=== PATIENT | female | born 1975 | race Caucasian/White ===

== ENCOUNTER 2019-09-17 06:51 | Day surgery (SDC) | payer BC, OTHER ==
[~2019-09-17 06:51] MED LIST: Lactated Ringers 1,000 ML IV SCH; Sodium Chloride 0.9% 10 ML SDV IV PRN; Sodium Chloride 0.9% 10 ML Syringe FLUSH PRN; Sodium Chloride 0.9% 2.5 ML Syringe FLUSH PRN; ceFAZolin 2 GM in Premix Bag 1 BAG IV ONE
[2019-09-17] MEDS ORDERED: Lidocaine 2% 5 ML SDV ONE (07:36)
[2019-09-17] MEDS ORDERED: Bupivacaine 0.25% 10 ML SDV ONE (07:36)
[2019-09-17] MEDS ORDERED: Methylene Blue 50 MG/10 ML Ampule ONE (07:36)
[2019-09-17] MEDS ORDERED: fentaNYL 100 MCG/2 ML SDV ONE (07:37)
[2019-09-17] MEDS ORDERED: Midazolam 1 MG/ML 2 ML SDV ONE (07:37)
[2019-09-17] MEDS ORDERED: Rocuronium 100 MG/10 ML Syringe ONE (07:37)
[2019-09-17] MEDS ORDERED: Iopamidol 200-M 10 ML vial ITHECAL ONE (07:37)
[2019-09-17] MEDS ORDERED: Propofol 200 MG/20 ML SDV ONE (07:37)
--- NOTE | 2019-09-17 07:38 | PCM.PREANE ---
Preanesthetic Assessment - Anesthesia/Transfusion/Family Hx Anesthesia History: Prior Anesthesia Reaction Other Type of Anesthesia Reaction Comment: tachycardia after D&C Family History of Anesthesia Reaction: No Transfusion History: No Prior Transfusion(s) - Review of Systems General: No Symptoms Pulmonary: No Symptoms Cardiovascular: No Symptoms Gastrointestinal: No Symptoms Neurological: No Symptoms Other: Reports: None - Physical Assessment NPO Status Date: 09/16/19 Vital Signs: Last Vital Signs Temp 98.8 F 09/17/19 07:05 Pulse 90 09/17/19 07:05 Resp 16 09/17/19 07:05 BP 140/80 09/17/19 07:05 Pulse Ox 97 09/17/19 07:05 Height: 5 ft 3.5 in Weight: 75.296 kg ASA Class: 2 Mental Status: Alert & Oriented x3 Airway Class: Mallampati = 2 Dentition: Reports: Normal Dentition ROM/Head Extension: Full Lungs: Clear to Auscultation, Normal Respiratory Effort Cardiovascular: Regular Rate, Regular Rhythm - Lab Values: Laboratory Last Values WBC 10.81 K/uL (4.0-11.0) 09/17/19 07:17 RBC 4.39 M/uL (4.30-5.90) 09/17/19 07:17 Hgb 11.6 g/dL (12.0-16.0) L 09/17/19 07:17 Hct 36.8 % (36.0-46.0) 09/17/19 07:17 MCV 83.8 fL (80.0-98.0) 09/17/19 07:17 MCH 26.4 pg (27.0-32.0) L 09/17/19 07:17 MCHC 31.5 g/dL (31.0-37.0) 09/17/19 07:17 RDW Std Deviation 41.4 fl (28.0-62.0) 09/17/19 07:17 RDW Coeff of George 14 % (11.0-15.0) 09/17/19 07:17 Plt Count 329 K/uL (150-400) 09/17/19 07:17 MPV 11.40 fL (7.40-12.00) 09/17/19 07:17 Nucleated RBC % 0.0 /100WBC 09/17/19 07:17 Nucleated RBCs # 0 K/uL 09/17/19 07:17 - Allergies Allergies/Adverse Reactions: Allergies Allergy/AdvReac Type Severity Reaction Status Date / Time ciprofloxacin [From Cipro] Allergy Tremors Verified 09/16/19 13:28 Sulfa (Sulfonamide Allergy Rash Verified 09/16/19 13:28 Antibiotics) - Blood Blood Available: No - Anesthesia Plan Pre-Op Medication Ordered: None - Acknowledgements Anesthesia Type Planned: General Anesthesia Pt an Appropriate Candidate for the Planned Anesthesia: Yes Alternatives and Risks of Anesthesia Discussed w Pt/Guardian: Yes Pt/Guardian Understands and Agrees with Anesthesia Plan: Yes Additional Comments: PMH: PCOS, HTN-recently started on Rx PLN: GET PreAnesthesia Questionnaire HEENT History: Reports: Other (See Below) Other HEENT History: wears glasses, has permanent lower dental retainer Cardiovascular History: Reports: Hypertension, Other (See Below) Other Cardiovascular History: hx of palpitations Genitourinary History: Reports: Other (See Below) Other Genitourinary History: has left renal mass 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: 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, Polycystic Ovaries, , Spontaneous Neurological History: Reports: Migraines, Other (See Below) Other Neuro History: monthly migraines- takes Ibuprofen, hx of motion sickness Psychiatric History: Reports: Anxiety Other Psychiatric History: does not take any medication - Past Surgical History Head Surgeries/Procedures: Reports: None Female Surgical History: Reports: D&C, Endometrial Ablation, LEEP, Tubal Ligation Other Female Surgeries/Procedures: D&C x3 Musculoskeletal Surgical History: Reports: Arthroscopic Knee - SUBSTANCE USE Smoking Status *Q: Never Smoker Recreational Drug Use History: No - HOME MEDS Home Medications: Home Meds Ferrous Sulfate 325 mg PO DAILY 09/16/19 [History] Metoprolol Succinate 50 mg PO BEDTIME 09/16/19 [History] Potassium Chloride 10 meq PO QAM 09/16/19 [History] - CURRENT (IN HOUSE) MEDS Current Meds: Current Medications Lactated Ringer's (Ringers, Lactated) 1,000 mls @ 100 mls/hr IV ASDIRECTED ELIZABETH Sodium Chloride (Saline Flush) 10 ml FLUSH ASDIRECTED PRN PRN Reason: Keep Vein Open Sodium Chloride (Saline Flush) 2.5 ml FLUSH ASDIRECTED PRN PRN Reason: Keep Vein Open Sodium Chloride (Normal Saline) 10 ml IV ASDIRECTED PRN PRN Reason: IV Use Discontinued Medications Cefazolin Sodium/Dextrose 2 gm (/ Premix) 50 mls @ 100 mls/hr IV ONETIME ONE Stop: 09/17/19 01:25
[2019-09-17] MEDS ORDERED: Fluorescein 5 ML Vial ONE (07:39)
[2019-09-17] MEDS ORDERED: ceFAZolin/Dextrose,Iso-Osmotic 2 GM/50 ML Duplex Bag IV ONE (07:41)
[2019-09-17] MEDS ORDERED: HYDROmorphone 2 MG/ML Syringe ONE (08:32)
[2019-09-17] MEDS ORDERED: Dexamethasone 4 MG/ML 5 ML MDV ONE (08:40)
[2019-09-17] MEDS ORDERED: Ondansetron 4 MG/2 ML SDV ONE ×2 (08:40→09:46)
[2019-09-17] MEDS ORDERED: Scopolamine 1.5 MG Transdermal Patch ONE (08:40)
[2019-09-17] MEDS ORDERED: ePHEDrine 50 MG/ML SDV ONE (08:50)
[2019-09-17] MEDS ORDERED: Promethazine 25 MG/ML SDV IM PRN (09:32)
[2019-09-17] MEDS ORDERED: fentaNYL 100 MCG/2 ML SDV IVPUSH PRN (09:32)
[2019-09-17] MEDS ORDERED: Glycopyrrolate 0.2 MG/ML SDV ONE (09:38)
[2019-09-17] MEDS ORDERED: Acetaminophen 1,000 MG in Premix Bag 1 BAG IV PRN (09:40)
--- NOTE | 2019-09-17 10:39 | PCM.POSTAN ---
POST ANESTHESIA ASSESSMENT - MENTAL STATUS Mental Status: Alert, Oriented - VITAL SIGNS Vital Signs: Last Vital Signs Temp 37.1 C 09/17/19 07:05 Pulse 91 09/17/19 10:30 Resp 10 L 09/17/19 10:30 BP 134/61 09/17/19 10:30 Pulse Ox 92 L 09/17/19 10:30 - RESPIRATORY Respiratory Status: Respiratory Rate WNL, Airway Patent, O2 Saturation Stable - CARDIOVASCULAR CV Status: Pulse Rate WNL, Blood Pressure Stable - GASTROINTESTINAL GI Status: No Symptoms - POST OP HYDRATION Hydration Status: Adequate & Stable
[2019-09-17] MEDS ORDERED: Acetaminophen/HYDROcodone 325-5 MG Tab PO PRN (11:07)
[2019-09-17] MEDS ORDERED: Haloperidol Lactate 5 MG/ML SDV IM ONE (11:09)
--- NOTE | 2019-09-17 12:52 | PCM48HPAN ---
Post Anesthesia Note - EVALUATION WITHIN 48HRS OF ANESTHETIC Vital Signs in Normal Range: Yes Patient Participated in Evaluation: Yes Respiratory Function Stable: Yes Airway Patent: Yes Cardiovascular Function Stable: Yes Hydration Status Stable: Yes Pain Control Satisfactory: Yes Nausea and Vomiting Control Satisfactory: Yes Mental Status Recovered: Yes Vital Signs: Last Vital Signs Temp 35.9 C L 09/17/19 10:38 Pulse 72 09/17/19 11:45 Resp 16 09/17/19 11:45 BP 146/61 H 09/17/19 11:45 Pulse Ox 95 09/17/19 11:45 - COMMENTS/OBSERVATIONS Free Text/Narrative:: Pt had post op nausea which has resolved with Haldol regimen. Denies pain or other problems associated with anesthesia.
--- NOTE | 2019-09-17 13:58 | OR ---
SURGEON: Gibran Pitt M.D. DATE OF PROCEDURE: 09/17/2019 PREOPERATIVE DIAGNOSIS: Left ureteral obstruction. POSTOPERATIVE DIAGNOSIS: Left ureteral obstruction. OPERATION: Cystoscopy, double-J stent placement on both sides in preparation for hysterectomy. DESCRIPTION OF PROCEDURE: The patient was given general anesthesia. She was in the dorsal lithotomy position, prepped and draped in sterile drapes. Cystoscope was placed in the bladder. The inside of bladder was normal. A guidewire was advanced in the left ureter. A 6-Tajik 26 cm was placed over the guidewire. However, there was unusual resistance and no hydronephrotic drip that was expected. So that stent was taken out and a Glidewire was advanced in the left ureter which went in without difficulty. After a left retrograde study was done, showed the point of obstruction close to the bladder and higher up by the uterus. There was no evidence of extravasation to suggest perforation. Over this Glidewire, which was now under fluoroscopy, a 6-Tajik 26 cm double-J stent was placed. The position was confirmed on fluoroscopy. The guidewire was then advanced in the right ureter, which had no obstruction, over which a 6-Tajik 26 centimeter double-J stent was placed. The position of that stent was also confirmed on fluoroscopy. The bladder was emptied, and the patient was turned over to the pack puller. The patient tolerated that part of the procedure well. It was easy to see a hydronephrotic drip from the left side. BARBARA / BERNIE /[id number]
--- NOTE | 2019-09-17 17:29 | OR ---
SURGEON: Tc García MD DATE OF PROCEDURE: 09/17/2019 INDICATIONS: A 44-year-old female with history of uterine polyps and fibroids presenting for scheduled hysterectomy. The patient initially presented with bleeding, after history of endometrial ablation. She had endocervical polyps that were removed and pathology showed benign polyp with simple glandular hyperplasia. On further workup she was noted to have elevated creatinine of 1.1. She had a workup including renal ultrasound, CT Abdomen and Pelvis and MRI which showed a cystic mass and hydronephrosis of the left kidney. She was evaluated by urology Dr. Pitt and mass appears benign with obstruction likely from uterine fibroids. The patient was scheduled for hysterectomy, but presented to the office after noticing a mass protruding from her vagina. On exam, that appeared to be a small pedunculated fibroid. Due to risk of bleeding, she was scheduled next day for a LAVH, bilateral salpingectomy, frozen section, and bilateral ureteral stent placement. PREOPERATIVE DIAGNOSES: 1. Uterine fibroids. 2. Simple hyperplasia. 3. Prolapsed fibroid. POSTOPERATIVE DIAGNOSES: 1. Uterine fibroids. 2. Suspected endometrial cancer PROCEDURES PERFORMED: Exam under anesthesia, removal of polypoid uterine mass, dilation and curettage. Cystoscopy and bilateral ureteral stent placement by Dr. Pitt. ANESTHESIOLOGIST: Dr. Jorge Luis Simms. ANESTHESIA: General anesthesia. EBL: 50cc FINDINGS: Edematous, friable, polypoid mass protruding from the cervix, measuring 5 cm x 5 cm, appearance concerning for malignancy. SPECIMEN: Uterine mass removed and sent to frozen pathology, differential include benign polyp versus uterine sarcoma or adenosarcoma. Could not make definitive diagnosis, will be sent to [facility] for additional evaluation. DESCRIPTION OF PROCEDURE: The patient was brought to the OR. General anesthesia was applied without difficulty. She was positioned in dorsal lithotomy position. Her legs supported using stirrups. Careful to avoid all pressure points. She was given 2 g Ancef preop for prophylaxis. The vagina was prepped with Betadine and abdomen prepped with chlorhexidine in sterile fashion. She was draped. Exam under anesthesia showed the uterus was irregular, 10-week size with firm fundal fibroid, mass protruding from the cervix, and fullness in the posterior cul-de-sac. A speculum was placed in the posterior vagina and a 5 cm x 5 cm poorly-formed, polypoid mass was noted to be protruding from the cervix which was very different in appearance from the exam in the office. The tissue was very edematous and friable, appearance very concerning for a malignancy. It was grasped with ring forceps and removed from the cervical os and lower uterus. The specimen was sent for frozen pathology. Attention was then turned to placement of ureteral stents. Dr. Pitt performed cystoscopy and placement of stents, please see separate dictation. The frozen section was nondiagnostic with the differentials including benign polyp, uterine sarcoma, or adenosarcoma. The speculum was again placed in the vagina to visualize the cervix. Decision was made at this point to perform D and C and defer hysterectomy until confirmation with pathology. Sharp curettage was carefully performed to remove any remaining tissue from the uterus and sent to pathology. The mass seemed to be mainly endocervical and in the lower uterus. The fundus of the uterus was stenotic due to prior ablation. Hemostasis was confirmed. The procedure was then terminated. She tolerated the procedure well and was given postop care instructions. Discussed with her operative findings, plan to refer to [facility] EDUCATOR Oncology for further evaluation. TONY / BERNIE /[id number]
--- NOTE | 2019-09-20 14:47 | CR ---
Abdomen: 8 fluoroscopic spot views were obtained utilizing C-arm device during placement of left retrograde pyelogram and stent placement Contrast within the left ureter shows no discrete filling defects. There is mildly dilated collecting system seen on the left side. Stent partially visualized on the right side. Fluoroscopy time given as 15.3 seconds. Impression: 1. Procedural study as described above. Diagnostic code #2 This report was dictated in MDT
== END 2019-09-17 13:30 | disposition home or self-care (01) ==
LOC: MW.SDS 06:51 → EDSTATUS 08:00 → MW.SDS 13:30
PROVIDERS: ATTEND Obstetrics & Gynecology
DX: N13.5 Crossing vessel and stricture of ureter without hydronephrosis (principal); N84.1 Polyp of cervix uteri; I11.9 Hypertensive heart disease without heart failure; R00.2 Palpitations; Z88.2 Allergy status to sulfonamides; Z88.1 Allergy status to other antibiotic agents
CPT/HCPCS: 36415; 52332; 58120; 76000; 80048; 85027; 86850; 86900; 86901; 88305; 88331; A9270; C1769; C2617; J0690; J1100; J1170; J2001; J2250; J2405; J2704; J3010; J3490; J7120; Q9966; 00940

== ENCOUNTER 2019-11-12 06:31 | Day surgery (SDC) | payer BC, OTHER ==
[2019-11-12] MEDS ORDERED: Glycopyrrolate 0.2 MG/ML SDV ONE (07:01)
[2019-11-12] MEDS ORDERED: Lidocaine 2% 5 ML SDV ONE (07:01)
[2019-11-12] MEDS ORDERED: Ondansetron 4 MG/2 ML SDV ONE (07:01)
[2019-11-12] MEDS ORDERED: Ketorolac 30 MG/ML SDV ONE (07:01)
[2019-11-12] MEDS ORDERED: Heparin Sodium 100 Units/ML 3 ML Syringe ONE ×2 (07:21→08:15)
[2019-11-12] MEDS ORDERED: Bupivacaine 0.5% 10 ML SDV ONE (07:21)
[2019-11-12] MEDS ORDERED: Octyl 2-Cyanoacrylate 1 Tube ONE (07:21)
[2019-11-12] MEDS ORDERED: Lidocaine 1% 20 ML MDV ONE (07:22)
[2019-11-12] MEDS ORDERED: Iopamidol 200-M 10 ML vial ITHECAL ONE (07:22)
[2019-11-12] MEDS ORDERED: Propofol 200 MG/20 ML SDV ONE (07:33)
[2019-11-12] MEDS ORDERED: fentaNYL 100 MCG/2 ML SDV ONE (07:33)
[2019-11-12] MEDS ORDERED: Midazolam 1 MG/ML 2 ML SDV ONE (07:33)
[2019-11-12] MEDS ORDERED: Sodium Chloride 0.9% 20 ML ONE (07:36)
[2019-11-12] MEDS ORDERED: ceFAZolin 1 GM Vial ONE (07:36)
--- NOTE | 2019-11-12 08:50 | PCM.OPNOTE ---
- General Post-Op/Procedure Note Date of Surgery/Procedure: 11/12/19 Operative Procedure(s): Right internal jugular port a cath placement Findings: RIJ port a cath Pre Op Diagnosis: Uterine cancer Post-Op Diagnosis: same Anesthesia Technique: MAC Primary Surgeon: Keisha Mario Fluid Replacement, Intraop: 700 EBL in mLs: 5 Condition: Good
--- NOTE | 2019-11-12 09:12 | PCM.POSTAN ---
POST ANESTHESIA ASSESSMENT - MENTAL STATUS Mental Status: Alert, Oriented - VITAL SIGNS Vital Signs: Last Vital Signs Temp 36.4 C 11/12/19 08:45 Pulse 82 11/12/19 09:05 Resp 14 11/12/19 09:05 BP 130/64 11/12/19 09:05 Pulse Ox 95 11/12/19 09:05 - RESPIRATORY Respiratory Status: Respiratory Rate WNL, Airway Patent, O2 Saturation Stable - CARDIOVASCULAR CV Status: Pulse Rate WNL, Blood Pressure Stable - GASTROINTESTINAL GI Status: No Symptoms - PAIN Pain Score: 0 - POST OP HYDRATION Hydration Status: Adequate & Stable - OBSERVATIONS Free Text/Narrative:: No anesthesia problems
--- NOTE | 2019-11-12 09:17 | PCM.PREANE ---
Preanesthetic Assessment - Anesthesia/Transfusion/Family Hx Anesthesia History: Prior Anesthesia Reaction Other Type of Anesthesia Reaction Comment: tachycardia after D&C Family History of Anesthesia Reaction: No Transfusion History: No Prior Transfusion(s) Intubation History: Unknown - Review of Systems General: No Symptoms Pulmonary: No Symptoms Cardiovascular: No Symptoms Gastrointestinal: No Symptoms Neurological: No Symptoms Other: Reports: None - Physical Assessment Vital Signs: Last Vital Signs Temp 36.4 C 11/12/19 08:45 Pulse 82 11/12/19 09:05 Resp 14 11/12/19 09:05 BP 130/64 11/12/19 09:05 Pulse Ox 95 11/12/19 09:05 Height: 5 ft 3 in Weight: 73.028 kg ASA Class: 2 Mental Status: Alert & Oriented x3 Airway Class: Mallampati = 1 Dentition: Reports: Normal Dentition Thyro-Mental Finger Breadths: 3 Mouth Opening Finger Breadths: 3 ROM/Head Extension: Full Lungs: Clear to Auscultation, Normal Respiratory Effort Cardiovascular: Regular Rate, Regular Rhythm - Allergies Allergies/Adverse Reactions: Allergies Allergy/AdvReac Type Severity Reaction Status Date / Time ciprofloxacin [From Cipro] Allergy Tremors Verified 11/12/19 07:06 Sulfa (Sulfonamide Allergy Rash Verified 11/12/19 07:06 Antibiotics) - Blood Blood Available: No - Anesthesia Plan Pre-Op Medication Ordered: None - Acknowledgements Anesthesia Type Planned: General Anesthesia Pt an Appropriate Candidate for the Planned Anesthesia: Yes Alternatives and Risks of Anesthesia Discussed w Pt/Guardian: Yes Pt/Guardian Understands and Agrees with Anesthesia Plan: Yes PreAnesthesia Questionnaire HEENT History: Reports: Other (See Below) Other HEENT History: wears glasses, has permanent lower dental retainer Cardiovascular History: Reports: Hypertension, Other (See Below) Other Cardiovascular History: hx of palpitations, twice a month, mostly all day on and off- stopped by themself Genitourinary History: Reports: Other (See Below) Other Genitourinary History: has left renal mass (cyst) 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: Fibroids, Polycystic Ovaries, , Spontaneous Neurological History: Reports: Migraines, Other (See Below) Other Neuro History: monthly migraines- takes Ibuprofen, hx of motion sickness Psychiatric History: Reports: Anxiety Other Psychiatric History: does not take any medication Oncologic (Cancer) History: Reports: Uterine - Past Surgical History Head Surgeries/Procedures: Reports: None Female Surgical History: Reports: D&C, Endometrial Ablation, Hysterectomy, LEEP, Salpingo-Oophorectomy, Tubal Ligation Other Female Surgeries/Procedures: D&C x3 Musculoskeletal Surgical History: Reports: Arthroscopic Knee - HOME MEDS Home Medications: Home Meds Metoprolol Succinate 50 mg PO BEDTIME 09/16/19 [History] - CURRENT (IN HOUSE) MEDS Current Meds: Current Medications Lactated Ringer's (Ringers, Lactated) 1,000 mls @ 125 mls/hr IV ASDIRECTED ELIZABETH Last Admin: 11/12/19 07:05 Dose: 125 mls/hr Documented by: Sodium Chloride (Saline Flush) 2.5 ml FLUSH ASDIRECTED PRN PRN Reason: Keep Vein Open Sodium Chloride (Normal Saline) 10 ml IV ASDIRECTED PRN PRN Reason: IV Use Sodium Chloride (Saline Flush) 10 ml FLUSH ASDIRECTED PRN PRN Reason: Keep Vein Open Discontinued Medications Bupivacaine HCl (Sensorcaine-Mpf 0.5%) Confirm Administered Dose 10 ml .ROUTE .STK-MED ONE Stop: 11/12/19 07:22 Cefazolin Sodium (Ancef) Confirm Administered Dose 2 gm .ROUTE .STK-MED ONE Stop: 11/12/19 07:37 Fentanyl (Sublimaze) Confirm Administered Dose 100 mcg .ROUTE .STK-MED ONE Stop: 11/12/19 07:34 Glycopyrrolate (Robinul) Confirm Administered Dose 0.2 mg .ROUTE .STK-MED ONE Stop: 11/12/19 07:02 Heparin Sodium (Porcine) (Heparin Lock Flush 100 Units/Ml) Confirm Administered Dose 600 unit .ROUTE .STK-MED ONE Stop: 11/12/19 07:22 Heparin Sodium (Porcine) (Heparin Lock Flush 100 Units/Ml) Confirm Administered Dose 600 unit .ROUTE .STK-MED ONE Stop: 11/12/19 08:16 Cefazolin Sodium/Dextrose 2 gm (/ Premix) 50 mls @ 100 mls/hr IV ONETIME ONE Stop: 11/08/19 11:54 Sodium Chloride (Normal Saline) Confirm Administered Dose 20 mls @ as directed .ROUTE .STK-MED ONE Stop: 06/26/20 07:37 Iopamidol (Isovue-M 200) Confirm Administered Dose 10 ml ITHECAL .STK-MED ONE Stop: 11/12/19 07:23 Ketorolac Tromethamine (Toradol) Confirm Administered Dose 30 mg .ROUTE .STK-MED ONE Stop: 11/12/19 07:02 Lidocaine (Xylocaine-Mpf 2%) Confirm Administered Dose 5 ml .ROUTE .STK-MED ONE Stop: 11/12/19 07:02 Lidocaine HCl (Xylocaine 1%) Confirm Administered Dose 20 ml .ROUTE .STK-MED ONE Stop: 11/12/19 07:23 Midazolam HCl (Versed 1 Mg/Ml) Confirm Administered Dose 2 mg .ROUTE .STK-MED ONE Stop: 11/12/19 07:34 Octyl Cyanoacrylate (Dermabond Advance) Confirm Administered Dose 1 applic .ROUTE .STK-MED ONE Stop: 11/12/19 07:22 Ondansetron HCl (Zofran) Confirm Administered Dose 4 mg .ROUTE .STK-MED ONE Stop: 11/12/19 07:02 Propofol (Diprivan 20 Ml) Confirm Administered Dose 200 mg .ROUTE .ST-MED ONE Stop: 11/12/19 07:34
--- NOTE | 2019-11-12 09:23 | CR ---
Chest: Portable view of the chest was obtained. Comparison: Prior chest x-ray of 09/01/19. Heart size and mediastinum are normal. Lungs are clear with no acute parenchymal change. Right sided infusion port is seen. Tip lies within the superior vena cava. No pneumothorax is seen. No acute osseous finding is seen. Impression: 1. Right-sided infusion port. 2. Portable chest x-ray is otherwise unremarkable. Diagnostic code #2 This report was dictated in MDT
--- NOTE | 2019-11-12 09:51 | PCM48HPAN ---
Post Anesthesia Note - EVALUATION WITHIN 48HRS OF ANESTHETIC Vital Signs in Normal Range: Yes Patient Participated in Evaluation: Yes Respiratory Function Stable: Yes Airway Patent: Yes Cardiovascular Function Stable: Yes Hydration Status Stable: Yes Pain Control Satisfactory: Yes Nausea and Vomiting Control Satisfactory: Yes Mental Status Recovered: Yes Vital Signs: Last Vital Signs Temp 36.4 C 11/12/19 08:45 Pulse 82 11/12/19 09:05 Resp 14 11/12/19 09:05 BP 130/64 11/12/19 09:05 Pulse Ox 95 11/12/19 09:05 - COMMENTS/OBSERVATIONS Free Text/Narrative:: No anesthesia problems
--- NOTE | 2019-11-12 10:49 | CR ---
Chest: 4 fluoroscopic spot views were obtained during placement of a right-sided Port-A-Cath. Study shows final position within the superior vena cava of the Port-A-Cath catheter. Fluoroscopy time given as 32.0 seconds. Impression: 1. Procedural study as noted above. Diagnostic code #2 This report was dictated in MDT
--- NOTE | 2019-11-14 20:48 | OR ---
SURGEON: KEISHA MARIO MD DATE OF PROCEDURE: 11/12/2019 PREOPERATIVE DIAGNOSIS: Uterine cancer. POSTOPERATIVE DIAGNOSIS: Uterine cancer. PROCEDURE PERFORMED: Right internal jugular Port-A-Cath placement. PRIMARY SURGEON: Keisha Mario M.D. ANESTHESIA: General LMA. FLUIDS: 700 mL crystalloid. ESTIMATED BLOOD LOSS: 5 mL. FINDINGS: Right internal jugular Port-A-Cath placement. COMPLICATIONS: None. INDICATIONS: The patient is a 44-year-old female who was recently diagnosed with uterine cancer. She is in need of a Port-A-Cath placement for chemotherapy treatment. I explained the procedure, expected perioperative course, and risks. The patient verbalized understanding and wishes to proceed. PROCEDURE IN DETAIL: The patient was brought into the OR and placed on the OR table in supine position. A time-out was completed verifying the patient's name, age, date of , allergies, and procedure to be performed. Both arms were tucked to the patient's side and a shoulder roll placed under the patient's shoulders. General LMA anesthesia was induced. An ultrasound was brought in and I verified the vascular anatomy of the right side of the neck. A photograph of this was taken and placed in the patient's chart. The neck and chest were then prepped and draped in usual standard fashion. The patient was placed into reverse Trendelenburg position. Using a sterile ultrasound, I re-identified the vascular anatomy of the right side of the neck. Using a 1:1 mixture of 0.5% Marcaine plain and 1% lidocaine plain, I anesthetized the skin overlying the right internal jugular vein. I also anesthetized my Port-A-Cath site on the right chest and my tunneling site going up to the neck. Using the ultrasound, I then placed a guide needle under direct visualization into the right internal jugular vein. A good broussard of venous blood was noted. A guidewire was then placed down the needle into the superior vena cava. The guide needle was removed and the guidewire was secured to the drapes using a hemostat. A C-arm was brought into the field to verify placement of my guidewire in the correct location. I then turned my attention to the right anterior chest wall. A 4 cm incision was made using a 15 blade, 2 fingerbreadths below the right lateral clavicle. Cautery was then used to dissect down to the level of subcutaneous fat and create a subcutaneous chest wall pocket, big enough for the Port-A-Cath device. Once this was completed and hemostasis achieved, a guide needle was used to tunnel the catheter tubing from my anterior chest wall site up to the insertion site of my guidewire on the neck. I then placed a vascular sheath and dilator over my guidewire. Using fluoroscopy, I dilated up my vascular tract. The dilator and guidewire were then removed and the catheter tubing was placed down the vascular sheath into the SVC. The sheath was then peeled away and removed from the field. Using fluoroscopy, I then pulled back on the catheter tubing so that the tip was sitting in the superior vena cava. X-rays of this were taken and saved in the patient's chart. I then accessed the catheter tubing and a good return of venous blood was noted. The catheter tubing was then flushed with injectable saline. I then trimmed the catheter to 24 cm and placed it on the Port-A-Cath device. This was then placed within my chest wall pocket. The catheter was then sutured on either side with 2-0 Prolene interrupted sutures. I then accessed the Port-A-Cath device and a good return of venous blood was noted. It was then locked with 4 mL of heparinized saline. The skin was then closed with interrupted layers of 3-0 Vicryl sutures in the subcutaneous fat layer and the skin was closed with running 4-0 Monocryl stitch. My insertion site on the neck was closed with an interrupted 4-0 Monocryl as well. Dermabond and sterile dressings were applied. The patient tolerated the procedure well. All counts were complete and correct at the end of the case. She was extubated and taken to PACU. A chest x-ray in PACU showed good placement of the Port-A-Cath device with no immediate complications. URI / BERNIE /[id number]
== END 2019-11-12 10:23 | disposition home or self-care (01) ==
LOC: MW.SDS 06:31
PROVIDERS: ATTEND Surgery
DX: C55 Malignant neoplasm of uterus, part unspecified (principal); I10 Essential (primary) hypertension; Z88.2 Allergy status to sulfonamides; Z88.8 Allergy status to other drugs, medicaments and biological substances; Z90.710 Acquired absence of both cervix and uterus; Z90.722 Acquired absence of ovaries, bilateral; Z98.890 Other specified postprocedural states
CPT/HCPCS: 36561; 71045; 76000; A9270; J0690; J1642; J1885; J2001; J2250; J2405; J2704; J3010; J3490; J7120; Q9966

== ENCOUNTER 2019-12-08 21:06 | Inpatient (IN) | payer BC, OTHER ==
[2019-12-08] MEDS ORDERED: Vancomycin 1.5 GM in Dextrose 5% in Water 250 ML IV ONE ×2 (21:31)
[2019-12-08] MEDS ORDERED: Sodium Chloride 0.9% 10 ML Syringe FLUSH PRN (21:31)
[2019-12-08] MEDS ORDERED: Sodium Chloride 0.9% 2.5 ML Syringe FLUSH PRN (21:31)
[2019-12-08] MEDS ORDERED: Piperacillin/Tazobactam 3.375 GM in Sodium Chloride 0.9% 100 ML IV ONE (21:31)
[2019-12-08] MEDS ORDERED: Sodium Chloride 0.9% 1,000 ML IV ONE ×2 (21:31→22:29)
[2019-12-08] MEDS ORDERED: Acetaminophen 500 MG Tab PO ONE (21:55)
[2019-12-08] MEDS ORDERED: Sodium Chloride 0.9% 50 ML ONE (22:24)
--- NOTE | 2019-12-08 22:31 | EDM.PDOC ---
ED HPI GENERAL MEDICAL PROBLEM - General Chief Complaint: Fever Stated Complaint: CHEMO, HIGH FEVER Time Seen by Provider: 12/08/19 21:35 - History of Present Illness INITIAL COMMENTS - FREE TEXT/NARRATIVE: History of present illness: Patient presents with a fever this afternoon as high as 102 she is a cancer patient with a primary uterine cancer who is on chemotherapy and radiation at this time she was sent by her oncologist to be evaluated in the emergency department she denies any sore throat cough or congestion she has not had any pain anywhere she has however had some dysuria for the past couple weeks mostly with some pain emptying her bladder at the end of her stream. She denies any back pain no abdominal pain no nausea vomiting or diarrhea. She has not had any lesions on her skin. Nothing seems to make it better or worse. Review of systems: As per history of present illness and below otherwise all systems reviewed and negative. Past medical history: As per history of present illness and as reviewed below otherwise noncontributory. Surgical history: As per history of present illness and as reviewed below otherwise noncontributory. Social history: No reported history of drug or alcohol abuse. Family history: As per history of present illness and as reviewed below otherwise noncontributory. Physical exam: HEENT: Atraumatic, normocephalic, pupils reactive, negative for conjunctival pallor or scleral icterus, mucous membranes moist, throat clear, neck supple, nontender, trachea midline. Lungs: Clear to auscultation, breath sounds equal bilaterally, chest nontender. Heart: S1S2, regular, negative for clicks, rubs, or JVD. Tachycardic in the 130s Abdomen: Soft, nondistended, nontender. Negative for masses or hepatosplenomegaly. Negative for costovertebral tenderness. Pelvis: Stable nontender. Genitourinary: Deferred. Rectal: Deferred. Extremities: Atraumatic, negative for cords or calf pain. Neurovascular unremarkable. Neuro: Awake, alert, oriented. Cranial nerves II through XII unremarkable. Cerebellum unremarkable. Motor and sensory unremarkable throughout. Exam nonfocal. Diagnostics: [] Therapeutics: [] Impression: Fever in an immunocompromised patient. [] Plan: Septic work-up empiric antibiotics and admission. [] Definitive disposition and diagnosis as appropriate pending reevaluation and review of above. - Related Data Allergies Allergy/AdvReac Type Severity Reaction Status Date / Time ciprofloxacin [From Cipro] Allergy Tremors Verified 12/08/19 21:25 Sulfa (Sulfonamide Allergy Rash Verified 12/08/19 21:25 Antibiotics) vancomycin Allergy Rash Verified 12/08/19 23:20 Home Meds: Home Meds Metoprolol Succinate 50 mg PO BEDTIME 09/16/19 [History] Ondansetron [Zofran] 8 mg PO Q8H PRN 12/08/19 [History] Prochlorperazine [Compazine] 10 mg PO Q6H PRN 12/08/19 [History] Past Medical History HEENT History: Reports: None, Other (See Below) Other HEENT History: wears glasses, has permanent lower dental retainer Cardiovascular History: Reports: Hypertension, Other (See Below) Other Cardiovascular History: hx of palpitations, twice a month, mostly all day on and off- stopped by themself Respiratory History: Reports: None Gastrointestinal History: Reports: None Genitourinary History: Reports: None Other Genitourinary History: has left renal mass (cyst) [employer] History: Reports: Fibroids, Polycystic Ovaries, , Spontaneous Musculoskeletal History: Reports: None Neurological History: Reports: Migraines, Other (See Below) Other Neuro History: monthly migraines- takes Ibuprofen, hx of motion sickness Psychiatric History: Reports: Anxiety Other Psychiatric History: does not take any medication Endocrine/Metabolic History: Reports: None Insulin Pump Model and Solids Control Technician: None Hematologic History: Reports: None Immunologic History: Reports: None Oncologic (Cancer) History: Reports: Uterine Dermatologic History: Reports: None - Infectious Disease History Infectious Disease History: Reports: None - Past Surgical History Head Surgeries/Procedures: Reports: None Female Surgical History: Reports: D&C, Endometrial Ablation, LEEP, Tubal Ligation Musculoskeletal Surgical History: Reports: Arthroscopic Knee Social & Family History - Family History Family Medical History: Noncontributory - Tobacco Use Smoking Status *Q: Never Smoker - Caffeine Use Caffeine Use: Reports: Tea - Recreational Drug Use Recreational Drug Use: No ED ROS GENERAL - Review of Systems Review Of Systems: See Below ED EXAM, GENERAL - Physical Exam Exam: See Below Course - Vital Signs Text/Narrative:: One-view portable chest read interpreted by me no acute cardiopulmonary pathology is evident At level 10:45 PM I discussed the case with Dr. Davis he will accept the patient for admission to the hospital. Last Recorded V/S: Last Vital Signs Temp 38.9 C H 12/08/19 23:23 Pulse 130 H 12/08/19 23:23 Resp 18 12/08/19 23:23 BP 145/65 H 12/08/19 23:23 Pulse Ox 96 12/08/19 23:23 - Orders/Labs/Meds Orders: Active Orders 24 hr Category Date Time Status Blood Pressure Mgt: Sepsis [RC] Q15MX2 Care 12/08/19 21:31 Active CORONAVIRUS COVID-19 CATA [MOLEC] Stat Lab 12/08/19 22:30 Received CULTURE BLOOD [BC] Stat Lab 12/08/19 22:00 Received CULTURE BLOOD [BC] Stat Lab 12/08/19 22:14 Received Sodium Chloride 0.9% [Normal Saline] 1,000 ml Med 12/08/19 22:29 Active IV .Bolus Sodium Chloride 0.9% [Saline Flush] Med 12/08/19 21:31 Active 10 ml FLUSH ASDIRECTED PRN Sodium Chloride 0.9% [Saline Flush] Med 12/08/19 21:31 Active 2.5 ml FLUSH ASDIRECTED PRN Blood Culture x2 Reflex Set [OM.PC] Stat Oth 12/08/19 21:31 Ordered Saline Lock Insert [OM.PC] Stat Oth 12/08/19 21:31 Ordered Severe Sepsis Onset Time [OM.PC] Stat Oth 12/08/19 21:31 Ordered Medication Orders Sodium Chloride (Normal Saline) 1,000 mls @ 999 mls/hr IV .Bolus ONE Stop: 12/08/19 23:29 Sodium Chloride (Saline Flush) 10 ml FLUSH ASDIRECTED PRN PRN Reason: Keep Vein Open Sodium Chloride (Saline Flush) 2.5 ml FLUSH ASDIRECTED PRN PRN Reason: Keep Vein Open Labs: Laboratory Tests 12/08/19 12/08/19 12/08/19 Range/Units 22:00 22:00 22:00 WBC 6.69 (4.0-11.0) K/uL RBC 3.57 L (4.30-5.90) M/uL Hgb 9.0 L (12.0-16.0) g/dL Hct 28.0 L (36.0-46.0) % MCV 78.4 L (80.0-98.0) fL MCH 25.2 L (27.0-32.0) pg MCHC 32.1 (31.0-37.0) g/dL RDW Std Deviation 43.3 (28.0-62.0) fl RDW Coeff of George 15 (11.0-15.0) % Plt Count 103 L (150-400) K/uL MPV 10.70 (7.40-12.00) fL Neut % (Auto) 95.3 H (48.0-80.0) % Lymph % (Auto) 1.8 L (16.0-40.0) % [place] % (Auto) 2.5 (0.0-15.0) % Eos % (Auto) 0.4 (0.0-7.0) % Baso % (Auto) 0.0 (0.0-1.5) % Neut # (Auto) 6.4 H (1.4-5.7) K/uL Lymph # (Auto) 0.1 L (0.6-2.4) K/uL [place] # (Auto) 0.2 (0.0-0.8) K/uL Eos # (Auto) 0.0 (0.0-0.7) K/uL Baso # (Auto) 0.0 (0.0-0.1) K/uL Nucleated RBC % 0.0 /100WBC Nucleated RBCs # 0 K/uL Lactate 4.6 H* (0.20-2.00) mmol/L Sodium (136-145) mmol/L Potassium (3.5-5.1) mmol/L Chloride (98-107) mmol/L Carbon Dioxide (21.0-32.0) mmol/L BUN (7.0-18.0) mg/dL Creatinine (0.6-1.0) mg/dL Est Cr Clr Drug Dosing mL/min Estimated GFR (MDRD) ml/min Glucose (74-106) mg/dL Calcium (8.5-10.1) mg/dL Total Bilirubin (0.2-1.0) mg/dL AST (15-37) IU/L ALT (14-63) IU/L Alkaline Phosphatase (46-116) U/L Total Protein (6.4-8.2) g/dL Albumin (3.4-5.0) g/dL Globulin (2.6-4.0) g/dL Albumin/Globulin Ratio (0.9-1.6) Urine Color YELLOW Urine Appearance CLEAR Urine pH 5.5 (5.0-8.0) Ur Specific [place] 1.025 (1.001-1.035) Urine Protein 30 H (NEGATIVE) mg/dL Urine Glucose (UA) NEGATIVE (NEGATIVE) mg/dL Urine Ketones NEGATIVE (NEGATIVE) mg/dL Urine Occult Blood MODERATE H (NEGATIVE) Urine Nitrite NEGATIVE (NEGATIVE) Urine Bilirubin NEGATIVE (NEGATIVE) Urine Urobilinogen 0.2 (<2.0) EU/dL Ur Leukocyte Esterase SMALL H (NEGATIVE) Urine RBC 3-5 (0-2/HPF) Urine WBC 4-9 (0-5/HPF) Ur Epithelial Cells OCCASIONAL (NONE-FEW) Urine Bacteria FEW (NEGATIVE) Urine Mucus LIGHT (NONE-MOD) 12/07/ Range/Units 22:00 WBC (4.0-11.0) K/uL RBC (4.30-5.90) M/uL Hgb (12.0-16.0) g/dL Hct (36.0-46.0) % MCV (80.0-98.0) fL MCH (27.0-32.0) pg MCHC (31.0-37.0) g/dL RDW Std Deviation (28.0-62.0) fl RDW Coeff of George (11.0-15.0) % Plt Count (150-400) K/uL MPV (7.40-12.00) fL Neut % (Auto) (48.0-80.0) % Lymph % (Auto) (16.0-40.0) % [place] % (Auto) (0.0-15.0) % Eos % (Auto) (0.0-7.0) % Baso % (Auto) (0.0-1.5) % Neut # (Auto) (1.4-5.7) K/uL Lymph # (Auto) (0.6-2.4) K/uL [place] # (Auto) (0.0-0.8) K/uL Eos # (Auto) (0.0-0.7) K/uL Baso # (Auto) (0.0-0.1) K/uL Nucleated RBC % /100WBC Nucleated RBCs # K/uL Lactate (0.20-2.00) mmol/L Sodium 135 L (136-145) mmol/L Potassium 3.9 (3.5-5.1) mmol/L Chloride 99 (98-107) mmol/L Carbon Dioxide 19.6 L (21.0-32.0) mmol/L BUN 17 (7.0-18.0) mg/dL Creatinine 1.3 H (0.6-1.0) mg/dL Est Cr Clr Drug Dosing 44.73 mL/min Estimated GFR (MDRD) 44.1 ml/min Glucose 221 H (74-106) mg/dL Calcium 8.3 L (8.5-10.1) mg/dL Total Bilirubin 0.2 (0.2-1.0) mg/dL AST 22 (15-37) IU/L ALT 40 (14-63) IU/L Alkaline Phosphatase 55 (46-116) U/L Total Protein 7.0 (6.4-8.2) g/dL Albumin 3.5 (3.4-5.0) g/dL Globulin 3.5 (2.6-4.0) g/dL Albumin/Globulin Ratio 1.0 (0.9-1.6) Urine Color Urine Appearance Urine pH (5.0-8.0) Ur Specific [place] (1.001-1.035) Urine Protein (NEGATIVE) mg/dL Urine Glucose (UA) (NEGATIVE) mg/dL Urine Ketones (NEGATIVE) mg/dL Urine Occult Blood (NEGATIVE) Urine Nitrite (NEGATIVE) Urine Bilirubin (NEGATIVE) Urine Urobilinogen (<2.0) EU/dL Ur Leukocyte Esterase (NEGATIVE) Urine RBC (0-2/HPF) Urine WBC (0-5/HPF) Ur Epithelial Cells (NONE-FEW) Urine Bacteria (NEGATIVE) Urine Mucus (NONE-MOD) Meds: Medications Generic Name Dose Route Start Last Admin Trade Name Freq PRN Reason Stop Dose Admin Sodium Chloride 1,000 mls @ 999 mls/hr 12/08/19 22:29 Normal Saline IV 12/08/19 23:29 .Bolus ONE Sodium Chloride 10 ml 12/08/19 21:31 Saline Flush FLUSH ASDIRECTED PRN Keep Vein Open Sodium Chloride 2.5 ml 12/08/19 21:31 Saline Flush FLUSH ASDIRECTED PRN Keep Vein Open Discontinued Medications Generic Name Dose Route Start Last Admin Trade Name Gordon PRN Reason Stop Dose Admin Acetaminophen 1,000 mg 12/08/19 21:55 12/08/19 22:16 Tylenol Extra Strength PO 12/08/19 21:56 1,000 mg ONETIME ONE Administration Piperacillin Sod/Tazobactam 100 mls @ 200 mls/hr 12/08/19 21:31 12/08/19 22:41 Sod 3.375 gm/ Sodium Chloride IV 12/08/19 22:00 Not Given STAT ONE Sodium Chloride 1,000 mls @ 999 mls/hr 12/08/19 21:31 12/08/19 22:16 Normal Saline IV 12/08/19 22:31 999 mls/hr .Bolus ONE Administration Vancomycin HCl 1.5 gm/ Premix 300 mls @ 300 mls/hr 12/08/19 22:20 12/08/19 23:21 IV 12/08/19 22:21 300 mls/hr ONETIME ONE Administration Sodium Chloride Confirm 12/08/19 22:24 12/08/19 22:39 Normal Saline Administered 12/08/19 22:25 Not Given Dose 50 mls @ as directed .ROUTE .STK-MED ONE Piperacillin Sod/Tazobactam 50 mls @ 100 mls/hr 12/08/19 22:39 Sod 3.375 gm/ Sodium Chloride IV 12/08/19 23:08 ONETIME ONE Departure - Departure Time of Disposition: 22:45 Disposition: Admitted As Inpatient 64 Condition: Fair Clinical Impression: Fever - Discharge Information *PRESCRIPTION DRUG MONITORING PROGRAM REVIEWED*: Not Applicable *COPY OF PRESCRIPTION DRUG MONITORING REPORT IN PATIENT AMINAH: Not Applicable Referrals: Brian Blackman MD [Primary Care Provider] - Forms: ED Department Discharge Sepsis Event Note (ED) - Evaluation Sepsis Screening Result: No Definite Risk - Focused Exam Vital Signs: Vital Signs Temp Pulse Resp BP Pulse Ox 12/08/19 23:23 38.9 C H 130 H 18 145/65 H 96 12/08/19 22:45 125 H 18 136/64 96 12/08/19 21:25 38.7 C H 144 H 18 150/79 H 96 - My Orders Last 24 Hours: My Active Orders 12/08/19 21:31 Blood Pressure Mgt: Sepsis [RC] Q15MX2 Sodium Chloride 0.9% [Saline Flush] 10 ml FLUSH ASDIRECTED PRN Sodium Chloride 0.9% [Saline Flush] 2.5 ml FLUSH ASDIRECTED PRN Blood Culture x2 Reflex Set [OM.PC] Stat Saline Lock Insert [OM.PC] Stat Severe Sepsis Onset Time [OM.PC] Stat 12/08/19 22:00 CULTURE BLOOD [BC] Stat 12/08/19 22:14 CULTURE BLOOD [BC] Stat 12/08/19 22:29 Sodium Chloride 0.9% [Normal Saline] 1,000 ml IV .Bolus 12/08/19 22:30 CORONAVIRUS COVID-19 CATA [MOLEC] Stat - Assessment/Plan Last 24 Hours: My Active Orders 12/08/19 21:31 Blood Pressure Mgt: Sepsis [RC] Q15MX2 Sodium Chloride 0.9% [Saline Flush] 10 ml FLUSH ASDIRECTED PRN Sodium Chloride 0.9% [Saline Flush] 2.5 ml FLUSH ASDIRECTED PRN Blood Culture x2 Reflex Set [OM.PC] Stat Saline Lock Insert [OM.PC] Stat Severe Sepsis Onset Time [OM.PC] Stat 12/08/19 22:00 CULTURE BLOOD [BC] Stat 12/08/19 22:14 CULTURE BLOOD [BC] Stat 12/08/19 22:29 Sodium Chloride 0.9% [Normal Saline] 1,000 ml IV .Bolus 12/08/19 22:30 CORONAVIRUS COVID-19 CATA [MOLEC] Stat
[2019-12-08 22:39] LABS: CARBON DIOXIDE,CO2 19.6 mmol/L (21.0-32.0); POTASSIUM,K 3.9 mmol/L (3.5-5.1)
[2019-12-08] MEDS ORDERED: Piperacillin/Tazobactam 3.375 GM in Sodium Chloride 0.9% 50 ML IV ONE (22:39)
--- NOTE | 2019-12-08 22:41 | CR ---
INDICATION: Fever TECHNIQUE: Chest one view COMPARISON: Chest x-ray 11/12/2019 FINDINGS: There is a stable right-sided [place] catheter. The heart is normal in size. The pulmonary vasculature is within normal limits. The lungs are clear without focal consolidation, pleural effusion or pneumothorax. IMPRESSION: No acute process. Dictated by Ivory Salmon MD @ 12/08/2019 10:39:38 PM Dictated by: Ivory Salmon MD @ 12/08/2019 22:39:42 (Electronically Signed)
[2019-12-09] MEDS ORDERED: diphenhydrAMINE 25 MG Cap PO PRN (00:26)
--- NOTE | 2019-12-09 00:34 | PN ---
THC Physician - Brief Progress [id number]/23/2020 00:24[facility] Patricia wong, TESSY - MWN (DONNIE) [facility] NancyBkDate of Service 12/09/2019 00:24HPI/Events of Note Brief eICU Admit [id number] yof with hx of uterine cancer on chemorx / radiationPresents with feverO/E Seen on cameraVSS, NADDVT Prophylaxis: SCDs orderedGI Prophylaxis: n/aIssuesSevere SepsisUnc lear sourceHas portacathStarted on zosyn / vancoRash with vanco - benadryl orderedAM labsAwait cultur esTrend lactateNS @ 125Case reviewed with bedside teamCall with questionsWill followInterventions Blake or-Infection - evaluation and management, Sepsis - evaluation and management
[2019-12-09] MEDS: Sodium Chloride 0.9% 1,000 ML IV SCH ×3 (00:56→20:38)
--- NOTE | 2019-12-09 01:02 | PN ---
THC Physician - Brief Progress [id number]/23/2020 01:01[facility] judith PatriciaTESSY - MYNOR (DONNIE) - [facility]ITALPHANBkDate of Service 12/09/2019 01:01HPI/Events of Note Sepsis Reassessment Focused ExamPatient examined via telepresence with assistance of bedside RNI have performed a sepsis reassessment focused exam. Physical exam/systems review findings an d plan: Perfusion goodFluids being givenTrending lactateInterventions Major-Sepsis - evaluation and management
--- NOTE | 2019-12-09 01:56 | PCM.HP.2 ---
H&P History of Present Illness - General Date of Service: 12/08/19 Admit Problem/Dx: Admission Diagnosis/Problem Admission Diagnosis/Problem Sepsis - History of Present Illness Initial Comments - Free Text/Narative: 44 yo female with uterine cancer who is currently undergoing chemotherapy and radiation therapy. Patient did have chemotherapy today and afterwords she felt hot and flush in the face. Her temperature was 100.8 so she went to the ED for evaluation as instructed. She denies any cough, diarrhea, shortness of breath or pain. She receive zosyn and vancomycin in the ED however she developed a rash with vancomycin on her arm and chest. - Related Data Allergies/Adverse Reactions: Allergies Allergy/AdvReac Type Severity Reaction Status Date / Time ciprofloxacin [From Cipro] Allergy Tremors Verified 12/09/19 00:19 Sulfa (Sulfonamide Allergy Rash Verified 12/09/19 00:19 Antibiotics) vancomycin Allergy Rash Verified 12/09/19 00:19 Home Medications: Home Meds Metoprolol Succinate 50 mg PO BEDTIME 09/16/19 [History] Ondansetron [Zofran] 8 mg PO Q8H PRN 12/08/19 [History] Prochlorperazine [Compazine] 10 mg PO Q6H PRN 12/08/19 [History] Past Medical History HEENT History: Reports: Other (See Below) Other HEENT History: wears glasses, has permanent lower dental retainer Cardiovascular History: Reports: Hypertension, Other (See Below) Other Cardiovascular History: hx of palpitations, twice a month, mostly all day on and off- stopped by themself Respiratory History: Reports: None Gastrointestinal History: Reports: None Genitourinary History: Reports: Other (See Below) Other Genitourinary History: has left renal mass (cyst) [employer]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, Polycystic Ovaries, , Spontaneous Musculoskeletal History: Reports: None Neurological History: Reports: Migraines, Other (See Below) Other Neuro History: monthly migraines- takes Ibuprofen, hx of motion sickness Psychiatric History: Reports: Anxiety Other Psychiatric History: does not take any medication Endocrine/Metabolic History: Reports: None Insulin Pump Model and Motor Block Mechanic: None Hematologic History: Reports: None Immunologic History: Reports: None Oncologic (Cancer) History: Reports: Uterine Dermatologic History: Reports: None - Infectious Disease History Infectious Disease History: Reports: None - Past Surgical History Head Surgeries/Procedures: Reports: None Female Surgical History: Reports: D&C, Endometrial Ablation, LEEP, Tubal Ligation Musculoskeletal Surgical History: Reports: Arthroscopic Knee Social & Family History - Family History Family Medical History: Noncontributory - Tobacco Use Smoking Status *Q: Never Smoker Second Hand Smoke Exposure: No - Caffeine Use Caffeine Use: Reports: Tea - Recreational Drug Use Recreational Drug Use: No H&P Review of Systems - Review of Systems: Review Of Systems: Comprehensive ROS is negative, except as noted in HPI. Exam - Exam Exam: See Below - Vital Signs Vital Signs: Last Vital Signs Temp 38.2 C H 12/09/19 00:05 Pulse 130 H 12/08/19 23:23 Resp 19 12/09/19 01:00 BP 134/64 12/09/19 01:00 Pulse Ox 96 12/09/19 01:00 Weight: 78.3 kg - Exam General: Alert, Oriented HEENT: Mucosa Moist & [place] Neck: Supple Lungs: Clear to Auscultation, Normal Respiratory Effort Cardiovascular: Regular Rate, Regular Rhythm GI/Abdominal Exam: Normal Bowel Sounds, Soft, Non-Tender Extremities: Non-Tender, No Pedal Edema Skin: Warm, Dry, Intact Neurological: No: Focal Deficit - Patient Data Lab Results Last 24 hrs: Laboratory Results - last 24 hr 12/08/19 12/08/19 12/08/19 Range/Units 22:00 22:00 22:00 WBC 6.69 (4.0-11.0) K/uL RBC 3.57 L (4.30-5.90) M/uL Hgb 9.0 L (12.0-16.0) g/dL Hct 28.0 L (36.0-46.0) % MCV 78.4 L (80.0-98.0) fL MCH 25.2 L (27.0-32.0) pg MCHC 32.1 (31.0-37.0) g/dL RDW Std Deviation 43.3 (28.0-62.0) fl RDW Coeff of George 15 (11.0-15.0) % Plt Count 103 L (150-400) K/uL MPV 10.70 (7.40-12.00) fL Neut % (Auto) 95.3 H (48.0-80.0) % Lymph % (Auto) 1.8 L (16.0-40.0) % [place] % (Auto) 2.5 (0.0-15.0) % Eos % (Auto) 0.4 (0.0-7.0) % Baso % (Auto) 0.0 (0.0-1.5) % Neut # (Auto) 6.4 H (1.4-5.7) K/uL Lymph # (Auto) 0.1 L (0.6-2.4) K/uL [place] # (Auto) 0.2 (0.0-0.8) K/uL Eos # (Auto) 0.0 (0.0-0.7) K/uL Baso # (Auto) 0.0 (0.0-0.1) K/uL Nucleated RBC % 0.0 /100WBC Nucleated RBCs # 0 K/uL Lactate 4.6 H* (0.20-2.00) mmol/L Sodium (136-145) mmol/L Potassium (3.5-5.1) mmol/L Chloride (98-107) mmol/L Carbon Dioxide (21.0-32.0) mmol/L BUN (7.0-18.0) mg/dL Creatinine (0.6-1.0) mg/dL Est Cr Clr Drug Dosing mL/min Estimated GFR (MDRD) ml/min Glucose (74-106) mg/dL Calcium (8.5-10.1) mg/dL Total Bilirubin (0.2-1.0) mg/dL AST (15-37) IU/L ALT (14-63) IU/L Alkaline Phosphatase (46-116) U/L Total Protein (6.4-8.2) g/dL Albumin (3.4-5.0) g/dL Globulin (2.6-4.0) g/dL Albumin/Globulin Ratio (0.9-1.6) Urine Color YELLOW Urine Appearance CLEAR Urine pH 5.5 (5.0-8.0) Ur Specific [place] 1.025 (1.001-1.035) Urine Protein 30 H (NEGATIVE) mg/dL Urine Glucose (UA) NEGATIVE (NEGATIVE) mg/dL Urine Ketones NEGATIVE (NEGATIVE) mg/dL Urine Occult Blood MODERATE H (NEGATIVE) Urine Nitrite NEGATIVE (NEGATIVE) Urine Bilirubin NEGATIVE (NEGATIVE) Urine Urobilinogen 0.2 (<2.0) EU/dL Ur Leukocyte Esterase SMALL H (NEGATIVE) Urine RBC 3-5 (0-2/HPF) Urine WBC 4-9 (0-5/HPF) Ur Epithelial Cells OCCASIONAL (NONE-FEW) Urine Bacteria FEW (NEGATIVE) Urine Mucus LIGHT (NONE-MOD) SARS Virus RNA (PCR) (NEGATIVE) 12/08/19 12/08/19 Range/Units 22:00 22:30 WBC (4.0-11.0) K/uL RBC (4.30-5.90) M/uL Hgb (12.0-16.0) g/dL Hct (36.0-46.0) % MCV (80.0-98.0) fL MCH (27.0-32.0) pg MCHC (31.0-37.0) g/dL RDW Std Deviation (28.0-62.0) fl RDW Coeff of George (11.0-15.0) % Plt Count (150-400) K/uL MPV (7.40-12.00) fL Neut % (Auto) (48.0-80.0) % Lymph % (Auto) (16.0-40.0) % [place] % (Auto) (0.0-15.0) % Eos % (Auto) (0.0-7.0) % Baso % (Auto) (0.0-1.5) % Neut # (Auto) (1.4-5.7) K/uL Lymph # (Auto) (0.6-2.4) K/uL [place] # (Auto) (0.0-0.8) K/uL Eos # (Auto) (0.0-0.7) K/uL Baso # (Auto) (0.0-0.1) K/uL Nucleated RBC % /100WBC Nucleated RBCs # K/uL Lactate (0.20-2.00) mmol/L Sodium 135 L (136-145) mmol/L Potassium 3.9 (3.5-5.1) mmol/L Chloride 99 (98-107) mmol/L Carbon Dioxide 19.6 L (21.0-32.0) mmol/L BUN 17 (7.0-18.0) mg/dL Creatinine 1.3 H (0.6-1.0) mg/dL Est Cr Clr Drug Dosing 44.73 mL/min Estimated GFR (MDRD) 44.1 ml/min Glucose 221 H (74-106) mg/dL Calcium 8.3 L (8.5-10.1) mg/dL Total Bilirubin 0.2 (0.2-1.0) mg/dL AST 22 (15-37) IU/L ALT 40 (14-63) IU/L Alkaline Phosphatase 55 (46-116) U/L Total Protein 7.0 (6.4-8.2) g/dL Albumin 3.5 (3.4-5.0) g/dL Globulin 3.5 (2.6-4.0) g/dL Albumin/Globulin Ratio 1.0 (0.9-1.6) Urine Color Urine Appearance Urine pH (5.0-8.0) Ur Specific [place] (1.001-1.035) Urine Protein (NEGATIVE) mg/dL Urine Glucose (UA) (NEGATIVE) mg/dL Urine Ketones (NEGATIVE) mg/dL Urine Occult Blood (NEGATIVE) Urine Nitrite (NEGATIVE) Urine Bilirubin (NEGATIVE) Urine Urobilinogen (<2.0) EU/dL Ur Leukocyte Esterase (NEGATIVE) Urine RBC (0-2/HPF) Urine WBC (0-5/HPF) Ur Epithelial Cells (NONE-FEW) Urine Bacteria (NEGATIVE) Urine Mucus (NONE-MOD) SARS Virus RNA (PCR) NEGATIVE (NEGATIVE) Result Diagrams: 12/09/19 07:31 12/09/19 07:31 Sepsis Event Note - Evaluation Sepsis Screening Result: Severe Sepsis Risk - Focused Exam Vital Signs: Vital Signs Temp Temp Pulse Resp BP Pulse Ox 12/09/19 01:00 19 134/64 96 12/09/19 00:05 38.2 C H 16 138/66 96 12/08/19 23:23 38.9 C H 130 H 18 145/65 H 96 12/08/19 22:46 38.2 C H 12/08/19 22:45 125 H 18 136/64 96 12/08/19 21:25 38.7 C H 144 H 18 150/79 H 96 Date Exam was Performed: 12/09/19 Time Exam was Performed: 12:13 Problem List Initiated/Reviewed/Updated: Yes Orders Last 24hrs: Active Orders 24 hr Category Date Time Status Patient Status [ADT] Routine ADT 12/08/19 23:27 Active Antiembolic Devices [RC] PER UNIT ROUTINE Care 12/09/19 00:28 Active Regular Diet [DIET] Diet 12/09/19 Dinner Active BASIC METABOLIC PANEL,BMP [CHEM] Routine Lab 12/09/19 03:00 Ordered CBC WITH AUTO DIFF [HEME] Routine Lab 12/09/19 03:00 Ordered CULTURE BLOOD [BC] Stat Lab 12/08/19 22:00 Received CULTURE BLOOD [BC] Stat Lab 12/08/19 22:14 Received LACTIC ACID,WHOLE BLOOD [BG] Q6H Lab 12/09/19 03:00 Ordered Piperacillin/Tazobactam [Piperacil-Tazobact] 3.375 gm Med 12/09/19 04:00 Ordered Sodium Chloride 0.9% [Normal Saline] 50 ml IV Q6H Sodium Chloride 0.9% [Normal Saline] 1,000 ml Med 12/09/19 00:30 Active IV ASDIRECTED Sodium Chloride 0.9% [Saline Flush] Med 12/08/19 21:31 Active 10 ml FLUSH ASDIRECTED PRN Sodium Chloride 0.9% [Saline Flush] Med 12/08/19 21:31 Active 2.5 ml FLUSH ASDIRECTED PRN diphenhydrAMINE [Benadryl] Med 12/09/19 00:26 Active 25 mg PO Q6H PRN Blood Culture x2 Reflex Set [OM.PC] Stat Oth 12/08/19 21:31 Ordered SCD [Sequential Compression Device] [OM.PC] Routine Oth 12/09/19 00:28 Ordered Saline Lock Insert [OM.PC] Stat Oth 12/08/19 21:31 Ordered Severe Sepsis Onset Time [OM.PC] Stat Oth 12/08/19 21:31 Ordered Medication Orders Diphenhydramine HCl (Benadryl) 25 mg PO Q6H PRN PRN Reason: Rash Sodium Chloride (Normal Saline) 1,000 mls @ 125 mls/hr IV ASDIRECTED ELIZABETH Last Admin: 12/09/19 00:56 Dose: 125 mls/hr Documented by: HANS Piperacillin Sod/Tazobactam (Sod 3.375 gm/ Sodium Chloride) 50 mls @ 100 mls/hr IV Q6H EL[facility]ETH Sodium Chloride (Saline Flush) 10 ml FLUSH ASDIRECTED PRN PRN Reason: Keep Vein Open Sodium Chloride (Saline Flush) 2.5 ml FLUSH ASDIRECTED PRN PRN Reason: Keep Vein Open Assessment/Plan Comment:: 44 yo female with uterine cancer on chemotherapy who is admitted for fever and suspect sepsis with no obvious source. Patient has been resuscitated with IV fluids and is feeling better. We will continue to trend lactic acid. Will continue Zosyn. Cultures are pending.
[2019-12-09] MEDS ORDERED: Piperacillin/Tazobactam 3.375 GM in Sodium Chloride 0.9% 50 ML IV SCH (04:00)
[2019-12-09] MEDS: Piperacillin/Tazobactam 3.375 GM in Sodium Chloride 0.9% 50 ML IV SCH ×3 (05:42→18:20)
[2019-12-09 08:00] LABS: CARBON DIOXIDE,CO2 20.7 mmol/L (21.0-32.0); POTASSIUM,K 3.9 mmol/L (3.5-5.1)
--- NOTE | 2019-12-09 12:17 | PCM.PN ---
- General Info Date of Service: 12/09/19 - Review of Systems Systems Review Comment:: feeling better, no fevers - Patient Data Vitals - Most Recent: Last Vital Signs Temp 37.1 C 12/09/19 08:00 Pulse 130 H 12/08/19 23:23 Resp 22 H 12/09/19 11:00 BP 126/57 L 12/09/19 11:00 Pulse Ox 97 12/09/19 11:00 Weight - Most Recent: 78.3 kg I&O - Last 24 Hours: Intake & Output 12/08/19 12/09/19 12/09/19 22:59 06:59 14:59 Intake Total 2950 50 Output Total 2150 Balance 800 50 Lab Results Last 24 Hours: Laboratory Results - last 24 hr 12/08/19 12/08/19 12/08/19 Range/Units 22:00 22:00 22:00 WBC 6.69 (4.0-11.0) K/uL RBC 3.57 L (4.30-5.90) M/uL Hgb 9.0 L (12.0-16.0) g/dL Hct 28.0 L (36.0-46.0) % MCV 78.4 L (80.0-98.0) fL MCH 25.2 L (27.0-32.0) pg MCHC 32.1 (31.0-37.0) g/dL RDW Std Deviation 43.3 (28.0-62.0) fl RDW Coeff of George 15 (11.0-15.0) % Plt Count 103 L (150-400) K/uL MPV 10.70 (7.40-12.00) fL Neut % (Auto) 95.3 H (48.0-80.0) % Lymph % (Auto) 1.8 L (16.0-40.0) % [place] % (Auto) 2.5 (0.0-15.0) % Eos % (Auto) 0.4 (0.0-7.0) % Baso % (Auto) 0.0 (0.0-1.5) % Neut # (Auto) 6.4 H (1.4-5.7) K/uL Lymph # (Auto) 0.1 L (0.6-2.4) K/uL [place] # (Auto) 0.2 (0.0-0.8) K/uL Eos # (Auto) 0.0 (0.0-0.7) K/uL Baso # (Auto) 0.0 (0.0-0.1) K/uL Nucleated RBC % 0.0 /100WBC Nucleated RBCs # 0 K/uL Lactate 4.6 H* (0.20-2.00) mmol/L Sodium (136-145) mmol/L Potassium (3.5-5.1) mmol/L Chloride (98-107) mmol/L Carbon Dioxide (21.0-32.0) mmol/L BUN (7.0-18.0) mg/dL Creatinine (0.6-1.0) mg/dL Est Cr Clr Drug Dosing mL/min Estimated GFR (MDRD) ml/min Glucose (74-106) mg/dL Calcium (8.5-10.1) mg/dL Total Bilirubin (0.2-1.0) mg/dL AST (15-37) IU/L ALT (14-63) IU/L Alkaline Phosphatase (46-116) U/L Total Protein (6.4-8.2) g/dL Albumin (3.4-5.0) g/dL Globulin (2.6-4.0) g/dL Albumin/Globulin Ratio (0.9-1.6) Urine Color YELLOW Urine Appearance CLEAR Urine pH 5.5 (5.0-8.0) Ur Specific [place] 1.025 (1.001-1.035) Urine Protein 30 H (NEGATIVE) mg/dL Urine Glucose (UA) NEGATIVE (NEGATIVE) mg/dL Urine Ketones NEGATIVE (NEGATIVE) mg/dL Urine Occult Blood MODERATE H (NEGATIVE) Urine Nitrite NEGATIVE (NEGATIVE) Urine Bilirubin NEGATIVE (NEGATIVE) Urine Urobilinogen 0.2 (<2.0) EU/dL Ur Leukocyte Esterase SMALL H (NEGATIVE) Urine RBC 3-5 (0-2/HPF) Urine WBC 4-9 (0-5/HPF) Ur Epithelial Cells OCCASIONAL (NONE-FEW) Urine Bacteria FEW (NEGATIVE) Urine Mucus LIGHT (NONE-MOD) SARS Virus RNA (PCR) (NEGATIVE) 12/08/19 12/08/19 12/09/19 Range/Units 22:00 22:30 02:19 WBC (4.0-11.0) K/uL RBC (4.30-5.90) M/uL Hgb (12.0-16.0) g/dL Hct (36.0-46.0) % MCV (80.0-98.0) fL MCH (27.0-32.0) pg MCHC (31.0-37.0) g/dL RDW Std Deviation (28.0-62.0) fl RDW Coeff of George (11.0-15.0) % Plt Count (150-400) K/uL MPV (7.40-12.00) fL Neut % (Auto) (48.0-80.0) % Lymph % (Auto) (16.0-40.0) % [place] % (Auto) (0.0-15.0) % Eos % (Auto) (0.0-7.0) % Baso % (Auto) (0.0-1.5) % Neut # (Auto) (1.4-5.7) K/uL Lymph # (Auto) (0.6-2.4) K/uL [place] # (Auto) (0.0-0.8) K/uL Eos # (Auto) (0.0-0.7) K/uL Baso # (Auto) (0.0-0.1) K/uL Nucleated RBC % /100WBC Nucleated RBCs # K/uL Lactate 3.5 H* (0.20-2.00) mmol/L Sodium 135 L (136-145) mmol/L Potassium 3.9 (3.5-5.1) mmol/L Chloride 99 (98-107) mmol/L Carbon Dioxide 19.6 L (21.0-32.0) mmol/L BUN 17 (7.0-18.0) mg/dL Creatinine 1.3 H (0.6-1.0) mg/dL Est Cr Clr Drug Dosing 44.73 mL/min Estimated GFR (MDRD) 44.1 ml/min Glucose 221 H (74-106) mg/dL Calcium 8.3 L (8.5-10.1) mg/dL Total Bilirubin 0.2 (0.2-1.0) mg/dL AST 22 (15-37) IU/L ALT 40 (14-63) IU/L Alkaline Phosphatase 55 (46-116) U/L Total Protein 7.0 (6.4-8.2) g/dL Albumin 3.5 (3.4-5.0) g/dL Globulin 3.5 (2.6-4.0) g/dL Albumin/Globulin Ratio 1.0 (0.9-1.6) Urine Color Urine Appearance Urine pH (5.0-8.0) Ur Specific [place] (1.001-1.035) Urine Protein (NEGATIVE) mg/dL Urine Glucose (UA) (NEGATIVE) mg/dL Urine Ketones (NEGATIVE) mg/dL Urine Occult Blood (NEGATIVE) Urine Nitrite (NEGATIVE) Urine Bilirubin (NEGATIVE) Urine Urobilinogen (<2.0) EU/dL Ur Leukocyte Esterase (NEGATIVE) Urine RBC (0-2/HPF) Urine WBC (0-5/HPF) Ur Epithelial Cells (NONE-FEW) Urine Bacteria (NEGATIVE) Urine Mucus (NONE-MOD) SARS Virus RNA (PCR) NEGATIVE (NEGATIVE) 12/09/19 12/09/19 12/09/19 Range/Units 07:31 07:31 07:31 WBC 6.26 (4.0-11.0) K/uL RBC 3.37 L (4.30-5.90) M/uL Hgb 8.6 L (12.0-16.0) g/dL Hct 26.7 L (36.0-46.0) % MCV 79.2 L (80.0-98.0) fL MCH 25.5 L (27.0-32.0) pg MCHC 32.2 (31.0-37.0) g/dL RDW Std Deviation 44.1 (28.0-62.0) fl RDW Coeff of George 16 H (11.0-15.0) % Plt Count 90 L (150-400) K/uL MPV 10.20 (7.40-12.00) fL Neut % (Auto) 92.0 H (48.0-80.0) % Lymph % (Auto) 2.4 L (16.0-40.0) % [place] % (Auto) 4.0 (0.0-15.0) % Eos % (Auto) 1.4 (0.0-7.0) % Baso % (Auto) 0.2 (0.0-1.5) % Neut # (Auto) 5.8 H (1.4-5.7) K/uL Lymph # (Auto) 0.2 L (0.6-2.4) K/uL [place] # (Auto) 0.3 (0.0-0.8) K/uL Eos # (Auto) 0.1 (0.0-0.7) K/uL Baso # (Auto) 0.0 (0.0-0.1) K/uL Nucleated RBC % 0.0 /100WBC Nucleated RBCs # 0 K/uL Lactate 2.7 H* (0.20-2.00) mmol/L Sodium 138 (136-145) mmol/L Potassium 3.9 (3.5-5.1) mmol/L Chloride 104 (98-107) mmol/L Carbon Dioxide 20.7 L (21.0-32.0) mmol/L BUN 15 (7.0-18.0) mg/dL Creatinine 1.2 H (0.6-1.0) mg/dL Est Cr Clr Drug Dosing 48.44 mL/min Estimated GFR (MDRD) 48.4 ml/min Glucose 163 H (74-106) mg/dL Calcium 7.7 L (8.5-10.1) mg/dL Total Bilirubin (0.2-1.0) mg/dL AST (15-37) IU/L ALT (14-63) IU/L Alkaline Phosphatase (46-116) U/L Total Protein (6.4-8.2) g/dL Albumin (3.4-5.0) g/dL Globulin (2.6-4.0) g/dL Albumin/Globulin Ratio (0.9-1.6) Urine Color Urine Appearance Urine pH (5.0-8.0) Ur Specific [place] (1.001-1.035) Urine Protein (NEGATIVE) mg/dL Urine Glucose (UA) (NEGATIVE) mg/dL Urine Ketones (NEGATIVE) mg/dL Urine Occult Blood (NEGATIVE) Urine Nitrite (NEGATIVE) Urine Bilirubin (NEGATIVE) Urine Urobilinogen (<2.0) EU/dL Ur Leukocyte Esterase (NEGATIVE) Urine RBC (0-2/HPF) Urine WBC (0-5/HPF) Ur Epithelial Cells (NONE-FEW) Urine Bacteria (NEGATIVE) Urine Mucus (NONE-MOD) SARS Virus RNA (PCR) (NEGATIVE) Med Orders - Current: Current Medications Diphenhydramine HCl (Benadryl) 25 mg PO Q6H PRN PRN Reason: Rash Sodium Chloride (Normal Saline) 1,000 mls @ 125 mls/hr IV ASDIRECTED LEIZABETH Last Admin: 12/09/19 11:20 Dose: 125 mls/hr Documented by: Piperacillin Sod/Tazobactam (Sod 3.375 gm/ Sodium Chloride) 50 mls @ 100 mls/hr IV Q6H [facility] Last Admin: 12/09/19 11:30 Dose: 100 mls/hr Documented by: Sodium Chloride (Saline Flush) 10 ml FLUSH ASDIRECTED PRN PRN Reason: Keep Vein Open Sodium Chloride (Saline Flush) 2.5 ml FLUSH ASDIRECTED PRN PRN Reason: Keep Vein Open Discontinued Medications Acetaminophen (Tylenol Extra Strength) 1,000 mg PO ONETIME ONE Stop: 12/08/19 21:56 Last Admin: 12/08/19 22:16 Dose: 1,000 mg Documented by: Piperacillin Sod/Tazobactam (Sod 3.375 gm/ Sodium Chloride) 100 mls @ 200 mls/hr IV STAT ONE Stop: 12/08/19 22:00 Last Admin: 12/08/19 22:41 Dose: Not Given Documented by: Sodium Chloride (Normal Saline) 1,000 mls @ 999 mls/hr IV .Bolus ONE Stop: 12/08/19 22:31 Last Admin: 12/08/19 22:16 Dose: 999 mls/hr Documented by: Vancomycin HCl 1.5 gm/ Premix 300 mls @ 300 mls/hr IV ONETIME ONE Stop: 12/08/19 22:21 Last Admin: 12/08/19 23:21 Dose: 300 mls/hr Documented by: Sodium Chloride (Normal Saline) Confirm Administered Dose 50 mls @ as directed .ROUTE .STK-MED ONE Stop: 12/08/19 22:25 Last Admin: 12/08/19 22:39 Dose: Not Given Documented by: Sodium Chloride (Normal Saline) 1,000 mls @ 999 mls/hr IV .Bolus ONE Stop: 12/08/19 23:29 Last Admin: 12/08/19 23:39 Dose: 999 mls/hr Documented by: Piperacillin Sod/Tazobactam (Sod 3.375 gm/ Sodium Chloride) 50 mls @ 100 mls/hr IV ONETIME ONE Stop: 12/08/19 23:08 Last Admin: 12/09/19 00:59 Dose: 100 mls/hr Documented by: Piperacillin Sod/Tazobactam (Sod 3.375 gm/ Sodium Chloride) 50 mls @ 100 mls/hr IV Q6H EL[facility]ABETH - Exam General: Alert, Oriented Neck: Supple Lungs: Clear to Auscultation, Normal Respiratory Effort Cardiovascular: Regular Rate, Regular Rhythm GI/Abdominal Exam: Normal Bowel Sounds, Soft, Non-Tender, No Distention Extremities: Non-Tender, No Pedal Edema Skin: Warm, Dry, Intact Neurological: No New Focal Deficit Sepsis Event Note - Evaluation Sepsis Screening Result: Severe Sepsis Risk - Focused Exam Vital Signs: Vital Signs Temp Temp Resp BP Pulse Ox 12/09/19 11:00 22 H 126/57 L 97 12/09/19 10:00 20 122/48 L 96 12/09/19 09:00 16 121/50 L 97 12/09/19 08:00 37.1 C 19 124/54 L 96 12/09/19 07:00 37.0 C 16 96 12/09/19 06:00 37.0 C 12 126/56 L 96 12/09/19 05:00 37.0 C 15 116/52 L 96 12/09/19 04:00 37.3 C 17 121/49 L 95 12/09/19 03:00 16 119/48 L 95 12/09/19 02:00 16 120/51 L 95 12/09/19 01:00 19 134/64 96 Date Exam was Performed: 12/09/19 Time Exam was Performed: 12:14 - Problem List Review Problem List Initiated/Reviewed/Updated: Yes - My Orders Last 24 Hours: My Active Orders 12/09/19 06:00 Piperacillin/Tazobactam [Piperacil-Tazobact] 3.375 gm Sodium Chloride 0.9% [Normal Saline] 50 ml IV Q6H 12/09/19 12:04 CULTURE BLOOD [BC] Stat Blood Culture x2 Reflex Set [OM.PC] Stat 12/10/19 05:11 BASIC METABOLIC PANEL,BMP [CHEM] AM CBC WITH AUTO DIFF [HEME] AM - Plan Plan:: 44 yo female with uterine cancer on chemotherapy who is admitted for fever and suspect sepsis with no obvious source. LActic acid has improved to 2.7 We will continue to monitor. Will continue Zosyn. I called Dr. Wong her oncologist who recommended obtaining cultures from her port.
[2019-12-09] MEDS ORDERED: Acetaminophen 325 MG Tab PO PRN (20:05)
[2019-12-09] MEDS ORDERED: Enoxaparin 40 MG/0.4 ML Syringe SUBCUT SCH (20:30)
[2019-12-09] MEDS: Loperamide 2 MG Cap PO PRN (20:38)
[2019-12-09] MEDS: Metoprolol Succinate 50 MG Tab.ER PO SCH (20:41)
[2019-12-10] MEDS: Piperacillin/Tazobactam 3.375 GM in Sodium Chloride 0.9% 50 ML IV SCH ×5 (00:08→23:06)
[2019-12-10] MEDS: Sodium Chloride 0.9% 1,000 ML IV SCH ×2 (05:05→21:44)
[2019-12-10 05:41] LABS: CARBON DIOXIDE,CO2 23.2 mmol/L (21.0-32.0); POTASSIUM,K 3.9 mmol/L (3.5-5.1)
[2019-12-10] MEDS: Pantoprazole 40 MG in Sodium Chloride 0.9% 10 ML IV SCH ×2 (12:12→23:03)
--- NOTE | 2019-12-10 12:50 | PCM.PN ---
- General Info Date of Service: 12/10/19 Admission Dx/Problem (Free Text): Admission Diagnosis/Problem Admission Diagnosis/Problem Sepsis Subjective Update: seen at bedside, no acute distress, no chest pain, SOB, fever, bloody stools - Review of Systems General: Denies: Fever, Weakness, Fatigue Pulmonary: Denies: Shortness of Breath, Pleuritic Chest Pain Cardiovascular: Denies: Chest Pain, Palpitations Gastrointestinal: Denies: Abdominal Pain, Constipation, Decreased Appetite Genitourinary: Denies: Dysuria, Frequency Musculoskeletal: Denies: Neck Pain, Shoulder Pain, Hand Pain Neurological: Reports: Headache. Denies: Confusion, Dizziness, Numbness, Paresthesia - Patient Data Vitals - Most Recent: Last Vital Signs Temp 36.8 C 12/10/19 12:14 Pulse 85 12/10/19 12:14 Resp 14 12/10/19 12:14 BP 147/68 H 12/10/19 12:14 Pulse Ox 98 12/10/19 12:14 Weight - Most Recent: 78.3 kg I&O - Last 24 Hours: Intake & Output 12/09/19 12/10/19 12/10/19 22:59 06:59 14:59 Intake Total 2300 800 10 Output Total 1500 2080 Balance 800 -1280 10 Lab Results Last 24 Hours: Laboratory Results - last 24 hr 12/09/19 12/09/19 12/10/19 Range/Units 12:34 19:03 05:03 WBC 2.72 L (4.0-11.0) K/uL RBC 3.07 L (4.30-5.90) M/uL Hgb 7.6 L (12.0-16.0) g/dL Hct 24.4 L (36.0-46.0) % MCV 79.5 L (80.0-98.0) fL MCH 24.8 L (27.0-32.0) pg MCHC 31.1 (31.0-37.0) g/dL RDW Std Deviation 45.3 (28.0-62.0) fl RDW Coeff of George 16 H (11.0-15.0) % Plt Count 81 L (150-400) K/uL MPV 10.70 (7.40-12.00) fL Neut % (Auto) 65.9 (48.0-80.0) % Lymph % (Auto) 16.5 (16.0-40.0) % Webb % (Auto) 11.0 (0.0-15.0) % Eos % (Auto) 6.6 (0.0-7.0) % Baso % (Auto) 0.0 (0.0-1.5) % Neut # (Auto) 1.8 (1.4-5.7) K/uL Lymph # (Auto) 0.5 L (0.6-2.4) K/uL Webb # (Auto) 0.3 (0.0-0.8) K/uL Eos # (Auto) 0.2 (0.0-0.7) K/uL Baso # (Auto) 0.0 (0.0-0.1) K/uL Nucleated RBC % 0.0 /100WBC Nucleated RBCs # 0 K/uL Lactate 2.2 H* 1.7 (0.20-2.00) mmol/L Sodium (136-145) mmol/L Potassium (3.5-5.1) mmol/L Chloride (98-107) mmol/L Carbon Dioxide (21.0-32.0) mmol/L BUN (7.0-18.0) mg/dL Creatinine (0.6-1.0) mg/dL Est Cr Clr Drug Dosing mL/min Estimated GFR (MDRD) ml/min Glucose (74-106) mg/dL Calcium (8.5-10.1) mg/dL 12/10/19 Range/Units 05:03 WBC (4.0-11.0) K/uL RBC (4.30-5.90) M/uL Hgb (12.0-16.0) g/dL Hct (36.0-46.0) % MCV (80.0-98.0) fL MCH (27.0-32.0) pg MCHC (31.0-37.0) g/dL RDW Std Deviation (28.0-62.0) fl RDW Coeff of George (11.0-15.0) % Plt Count (150-400) K/uL MPV (7.40-12.00) fL Neut % (Auto) (48.0-80.0) % Lymph % (Auto) (16.0-40.0) % Webb % (Auto) (0.0-15.0) % Eos % (Auto) (0.0-7.0) % Baso % (Auto) (0.0-1.5) % Neut # (Auto) (1.4-5.7) K/uL Lymph # (Auto) (0.6-2.4) K/uL Webb # (Auto) (0.0-0.8) K/uL Eos # (Auto) (0.0-0.7) K/uL Baso # (Auto) (0.0-0.1) K/uL Nucleated RBC % /100WBC Nucleated RBCs # K/uL Lactate (0.20-2.00) mmol/L Sodium 141 (136-145) mmol/L Potassium 3.9 (3.5-5.1) mmol/L Chloride 107 (98-107) mmol/L Carbon Dioxide 23.2 (21.0-32.0) mmol/L BUN 15 (7.0-18.0) mg/dL Creatinine 1.2 H (0.6-1.0) mg/dL Est Cr Clr Drug Dosing 48.44 mL/min Estimated GFR (MDRD) 48.4 ml/min Glucose 85 (74-106) mg/dL Calcium 7.6 L (8.5-10.1) mg/dL [facility] Results Last 24 Hours: Microbiology 12/09/19 12:34 Aerobic Blood Culture - Preliminary Blood - Port-A-Cath NO GROWTH AFTER 1 DAY Anaerobic Blood Culture - Preliminary NO GROWTH AFTER 1 DAY 12/10/19 07:30 Stool Occult Blood ([facility]) - Final Stool / Feces 12/08/19 22:14 Aerobic Blood Culture - Preliminary Blood - Venous - Lab Draw NO GROWTH AFTER 1 DAY Anaerobic Blood Culture - Preliminary NO GROWTH AFTER 1 DAY 12/08/19 22:00 Aerobic Blood Culture - Preliminary Blood - Venous NO GROWTH AFTER 1 DAY Anaerobic Blood Culture - Preliminary NO GROWTH AFTER 1 DAY Med Orders - Current: Current Medications Acetaminophen (Tylenol) 325 mg PO Q4H PRN PRN Reason: Pain Diphenhydramine HCl (Benadryl) 25 mg PO Q6H PRN PRN Reason: Rash Sodium Chloride (Normal Saline) 1,000 mls @ 125 mls/hr IV ASDIRECTED [facility] Last Admin: 12/10/19 05:05 Dose: 125 mls/hr Documented by: Piperacillin Sod/Tazobactam (Sod 3.375 gm/ Sodium Chloride) 50 mls @ 100 mls/hr IV Q6H [facility] Last Admin: 12/10/19 12:17 Dose: 100 mls/hr Documented by: Pantoprazole Sodium 40 mg/ (Sodium Chloride) 10 mls @ 300 mls/hr IV Q12H [facility] Last Admin: 12/10/19 12:12 Dose: 300 mls/hr Documented by: Loperamide HCl (Imodium) 2 mg PO Q6H PRN PRN Reason: Diarrhea Last Admin: 12/09/19 20:38 Dose: 2 mg Documented by: Metoprolol Succinate (Toprol Xl) 50 mg PO BEDTIME [facility] Last Admin: 12/09/19 20:41 Dose: 50 mg Documented by: Sodium Chloride (Saline Flush) 10 ml FLUSH ASDIRECTED PRN PRN Reason: Keep Vein Open Sodium Chloride (Saline Flush) 2.5 ml FLUSH ASDIRECTED PRN PRN Reason: Keep Vein Open Discontinued Medications Acetaminophen (Tylenol Extra Strength) 1,000 mg PO ONETIME ONE Stop: 12/08/19 21:56 Last Admin: 12/08/19 22:16 Dose: 1,000 mg Documented by: Enoxaparin Sodium (Lovenox) 40 mg SUBCUT Q24H [facility] Last Admin: 12/09/19 22:15 Dose: 40 mg Documented by: Piperacillin Sod/Tazobactam (Sod 3.375 gm/ Sodium Chloride) 100 mls @ 200 mls/hr IV STAT ONE Stop: 12/08/19 22:00 Last Admin: 12/08/19 22:41 Dose: Not Given Documented by: Sodium Chloride (Normal Saline) 1,000 mls @ 999 mls/hr IV .Bolus ONE Stop: 12/08/19 22:31 Last Admin: 12/08/19 22:16 Dose: 999 mls/hr Documented by: Vancomycin HCl 1.5 gm/ Premix 300 mls @ 300 mls/hr IV ONETIME ONE Stop: 12/08/19 22:21 Last Admin: 12/08/19 23:21 Dose: 300 mls/hr Documented by: Sodium Chloride (Normal Saline) Confirm Administered Dose 50 mls @ as directed .ROUTE .STK-MED ONE Stop: 12/08/19 22:25 Last Admin: 12/08/19 22:39 Dose: Not Given Documented by: Sodium Chloride (Normal Saline) 1,000 mls @ 999 mls/hr IV .Bolus ONE Stop: 12/08/19 23:29 Last Admin: 12/08/19 23:39 Dose: 999 mls/hr Documented by: Piperacillin Sod/Tazobactam (Sod 3.375 gm/ Sodium Chloride) 50 mls @ 100 mls/hr IV ONETIME ONE Stop: 12/08/19 23:08 Last Admin: 12/09/19 00:59 Dose: 100 mls/hr Documented by: Piperacillin Sod/Tazobactam (Sod 3.375 gm/ Sodium Chloride) 50 mls @ 100 mls/hr IV Q6H [facility] - Exam General: Alert, Oriented Neck: Supple Lungs: Clear to Auscultation, Normal Respiratory Effort Cardiovascular: Regular Rate, Regular Rhythm GI/Abdominal Exam: Normal Bowel Sounds, Soft, Non-Tender Sepsis Event Note - Evaluation Sepsis Screening Result: No Definite Risk - Focused Exam Vital Signs: Vital Signs Temp Pulse Resp BP Pulse Ox 12/10/19 12:14 36.8 C 85 14 147/68 H 98 12/10/19 10:15 36.4 C 81 16 154/79 H 99 12/10/19 04:00 36.7 C 77 18 126/60 96 Date Exam was Performed: 12/10/19 Time Exam was Performed: 12:50 - Problem List & Annotations (1) Anemia SNOMED Code(s): 495223733 Code(s): D64.9 - ANEMIA, UNSPECIFIED Status: Acute Current Visit: Yes (2) Occult blood positive stool SNOMED Code(s): 75386316 Code(s): R19.5 - OTHER FECAL ABNORMALITIES Status: Acute Current Visit: Yes - Problem List Review Problem List Initiated/Reviewed/Updated: Yes - My Orders Last 24 Hours: My Active Orders 12/09/19 21:00 Metoprolol Succinate [Toprol XL] 50 mg PO BEDTIME 12/10/19 10:59 RED BLOOD CELLS LP [BBK] Routine TYPE AND SCREEN [BBK] Routine 12/10/19 11:00 Pantoprazole [ProTONIX IV] 40 mg Sodium Chloride 0.9% [Normal Saline] 10 ml IV Q12H Transfuse PRBC [Transfuse Red Blood Cells] [COMM] Routine - Plan Plan:: 44 yo female with uterine cancer on chemotherapy who is admitted for fever and suspect sepsis with no obvious source. Lactic acidosis has resolved, continue Zosyn for now f/u blood cultures. Stool is occult positive, Hb has dropped, no apparent GI bleeding as of now, no melena, no black stools, no bright red stools, likely due to ongoing radiation Start IV PPI 40 mg BID Will transfuse 2 units of PRBC to keep Hb >9 Stop Lovenox, scd for DVT ppx for now
[2019-12-10] MEDS: Loperamide 2 MG Cap PO PRN (13:58)
[2019-12-10] MEDS: Metoprolol Succinate 50 MG Tab.ER PO SCH (21:35)
[2019-12-11] MEDS: Piperacillin/Tazobactam 3.375 GM in Sodium Chloride 0.9% 50 ML IV SCH ×2 (05:33→11:47)
[2019-12-11] MEDS: Sodium Chloride 0.9% 1,000 ML IV SCH (05:34)
[2019-12-11 06:04] LABS: CARBON DIOXIDE,CO2 24.6 mmol/L (21.0-32.0); POTASSIUM,K 3.7 mmol/L (3.5-5.1)
[2019-12-11] MEDS ORDERED: Magnesium Sulfate/Water 4 GM in Premix Bag 1 BAG IV ONE (07:19)
--- NOTE | 2019-12-11 09:13 | PCM.DCSUM1 ---
Discharge Summary - Hospital Course Free Text/Narrative:: 44 yo female with uterine cancer who is currently undergoing chemotherapy and radiation therapy. Patient did have chemotherapy today and afterwords she felt hot and flush in the face. Her temperature was 100.8 so she went to the ED for evaluation as instructed. She denies any cough, diarrhea, shortness of breath or pain. She receive zosyn and vancomycin in the ED however she developed a rash with vancomycin on her arm and chest. Patient was continued on zosyn and vancomycin was discontinued, blood cultures were obtained, which eventually were negative, patient developed pancytopenia on day 2, with Hb of 7.6, stool occult was positive but there was no grossly evident GI bleed with bloody or dark stools. She was started on Protonix,Patient received 2 units of PRBC, Her Hb stabilized next day, also her WBC count improved the next day. Patient was afebrile, hemodynamically stable, IV Zosyn was discontinued, low grade fever on admission was likely due to ongoing radiation therapy. Patient was medically stable for dc and recommended to fu with her pcp and oncologist in a week for repeat CBC. - Discharge Data Discharge Date: 12/11/19 Discharge Disposition: Home, Self-Care 01 Condition: Fair - Referral to Home Health Primary Care Physician: Brian Blackman MD - Discharge Diagnosis/Problem(s) (1) Anemia SNOMED Code(s): 550082391 ICD Code: D64.9 - ANEMIA, UNSPECIFIED Status: Acute Current Visit: Yes (2) Occult blood positive stool SNOMED Code(s): 40696694 ICD Code: R19.5 - OTHER FECAL ABNORMALITIES Status: Acute Current Visit: Yes - Discharge Plan *PRESCRIPTION DRUG MONITORING PROGRAM REVIEWED*: Not Applicable *COPY OF PRESCRIPTION DRUG MONITORING REPORT IN PATIENT AMINAH: Not Applicable Prescriptions/Med Rec: Loperamide [Imodium] 2 mg PO Q6H PRN #30 cap PRN Reason: Diarrhea Pantoprazole Sodium [Protonix] 40 mg PO ACBREAKFAST #15 tablet.dr Christopher Medications: Home Meds Metoprolol Succinate 50 mg PO BEDTIME 09/16/19 [History] Ondansetron [Zofran] 8 mg PO Q8H PRN 12/08/19 [History] Prochlorperazine [Compazine] 10 mg PO Q6H PRN 12/08/19 [History] Loperamide [Imodium] 2 mg PO Q6H PRN #30 cap 12/11/19 [Rx] Pantoprazole Sodium [Protonix] 40 mg PO ACBREAKFAST #15 tablet. 12/11/19 [Rx] Patient Handouts: Fever, Adult Referrals: Owen Montana MD [Physician] - 12/13/19 9:30 am Steve Ordonez MD [Ordering Only Provider] - 12/15/19 10:00 am Brian Blackman MD [Primary Care Provider] - 12/21/19 3:00 pm (Arrive 15 minutes early with a photo ID, insurance card, and a mask. ) - Discharge Summary/Plan Comment DC Time >30 min.: No - Patient Data Vitals - Most Recent: Last Vital Signs Temp 37.7 C 12/11/19 07:43 Pulse 79 12/11/19 07:43 Resp 14 12/11/19 07:43 BP 139/77 12/11/19 07:43 Pulse Ox 97 12/11/19 07:43 Weight - Most Recent: 78.3 kg I&O - Last 24 hours: Intake & Output 12/10/19 12/11/19 12/11/19 22:59 06:59 14:59 Intake Total 1953 1593 Output Total 1900 2900 Balance 55 -1307 Lab Results - Last 24 hrs: Laboratory Results - last 24 hr 12/10/19 12/11/19 12/11/19 Range/Units 12:00 05:28 05:28 WBC 3.05 L (4.0-11.0) K/uL RBC 4.21 L (4.30-5.90) M/uL Hgb 10.6 L (12.0-16.0) g/dL Hct 33.0 L (36.0-46.0) % MCV 78.4 L (80.0-98.0) fL MCH 25.2 L (27.0-32.0) pg MCHC 32.1 (31.0-37.0) g/dL RDW Std Deviation 43.9 (28.0-62.0) fl RDW Coeff of George 16 H (11.0-15.0) % Plt Count 96 L (150-400) K/uL MPV 10.20 (7.40-12.00) fL Neut % (Auto) 60.9 (48.0-80.0) % Lymph % (Auto) 19.7 (16.0-40.0) % [place] % (Auto) 10.5 (0.0-15.0) % Eos % (Auto) 8.2 H (0.0-7.0) % Baso % (Auto) 0.7 (0.0-1.5) % Neut # (Auto) 1.9 (1.4-5.7) K/uL Lymph # (Auto) 0.6 (0.6-2.4) K/uL [place] # (Auto) 0.3 (0.0-0.8) K/uL Eos # (Auto) 0.3 (0.0-0.7) K/uL Baso # (Auto) 0.0 (0.0-0.1) K/uL Nucleated RBC % 0.0 /100WBC Nucleated RBCs # 0 K/uL Sodium 140 (136-145) mmol/L Potassium 3.7 (3.5-5.1) mmol/L Chloride 104 (98-107) mmol/L Carbon Dioxide 24.6 (21.0-32.0) mmol/L BUN 13 (7.0-18.0) mg/dL Creatinine 1.2 H (0.6-1.0) mg/dL Est Cr Clr Drug Dosing 48.44 mL/min Estimated GFR (MDRD) 48.4 ml/min Glucose 85 (74-106) mg/dL Calcium 7.7 L (8.5-10.1) mg/dL Phosphorus 5.0 H (2.6-4.7) mg/dL Magnesium 1.5 L (1.8-2.4) mg/dL Blood Type A POSITIVE Antibody Screen NEGATIVE Crossmatch See Detail [facility] Results - Last 24 hrs: Microbiology 12/08/19 22:14 Aerobic Blood Culture - Preliminary Blood - Venous - Lab Draw NO GROWTH AFTER 2 DAYS Anaerobic Blood Culture - Preliminary NO GROWTH AFTER 2 DAYS 12/08/19 22:00 Aerobic Blood Culture - Preliminary Blood - Venous NO GROWTH AFTER 2 DAYS Anaerobic Blood Culture - Preliminary NO GROWTH AFTER 2 DAYS 12/09/19 12:34 Aerobic Blood Culture - Preliminary Blood - Port-A-Cath NO GROWTH AFTER 1 DAY Anaerobic Blood Culture - Preliminary NO GROWTH AFTER 1 DAY 12/10/19 07:30 Stool Occult Blood ([facility]) - Final Stool / Feces Med Orders - Current: Current Medications Acetaminophen (Tylenol) 325 mg PO Q4H PRN PRN Reason: Pain Diphenhydramine HCl (Benadryl) 25 mg PO Q6H PRN PRN Reason: Rash Sodium Chloride (Normal Saline) 1,000 mls @ 125 mls/hr IV ASDIRECTED [facility] Last Admin: 12/11/19 05:34 Dose: 125 mls/hr Documented by: Piperacillin Sod/Tazobactam (Sod 3.375 gm/ Sodium Chloride) 50 mls @ 100 mls/hr IV Q6H [facility] Last Admin: 12/11/19 05:33 Dose: 100 mls/hr Documented by: Pantoprazole Sodium 40 mg/ (Sodium Chloride) 10 mls @ 300 mls/hr IV Q12H [facility] Last Admin: 12/10/19 23:03 Dose: 300 mls/hr Documented by: Magnesium Sulfate 4 gm/ Premix 100 mls @ 50 mls/hr IV ONETIME ONE Stop: 12/11/19 09:18 Last Admin: 12/11/19 07:55 Dose: 50 mls/hr Documented by: Loperamide HCl (Imodium) 2 mg PO Q6H PRN PRN Reason: Diarrhea Last Admin: 12/10/19 13:58 Dose: 2 mg Documented by: Metoprolol Succinate (Toprol Xl) 50 mg PO BEDTIME [facility] Last Admin: 12/10/19 21:35 Dose: 50 mg Documented by: Sodium Chloride (Saline Flush) 10 ml FLUSH ASDIRECTED PRN PRN Reason: Keep Vein Open Sodium Chloride (Saline Flush) 2.5 ml FLUSH ASDIRECTED PRN PRN Reason: Keep Vein Open Discontinued Medications Acetaminophen (Tylenol Extra Strength) 1,000 mg PO ONETIME ONE Stop: 12/08/19 21:56 Last Admin: 12/08/19 22:16 Dose: 1,000 mg Documented by: Enoxaparin Sodium (Lovenox) 40 mg SUBCUT Q24H [facility] Last Admin: 12/09/19 22:15 Dose: 40 mg Documented by: Piperacillin Sod/Tazobactam (Sod 3.375 gm/ Sodium Chloride) 100 mls @ 200 mls/hr IV STAT ONE Stop: 12/08/19 22:00 Last Admin: 12/08/19 22:41 Dose: Not Given Documented by: Sodium Chloride (Normal Saline) 1,000 mls @ 999 mls/hr IV .Bolus ONE Stop: 12/08/19 22:31 Last Admin: 12/08/19 22:16 Dose: 999 mls/hr Documented by: Vancomycin HCl 1.5 gm/ Premix 300 mls @ 300 mls/hr IV ONETIME ONE Stop: 12/08/19 22:21 Last Admin: 12/08/19 23:21 Dose: 300 mls/hr Documented by: Sodium Chloride (Normal Saline) Confirm Administered Dose 50 mls @ as directed .ROUTE .STK-MED ONE Stop: 12/08/19 22:25 Last Admin: 12/08/19 22:39 Dose: Not Given Documented by: Sodium Chloride (Normal Saline) 1,000 mls @ 999 mls/hr IV .Bolus ONE Stop: 12/08/19 23:29 Last Admin: 12/08/19 23:39 Dose: 999 mls/hr Documented by: Piperacillin Sod/Tazobactam (Sod 3.375 gm/ Sodium Chloride) 50 mls @ 100 mls/hr IV ONETIME ONE Stop: 12/08/19 23:08 Last Admin: 12/09/19 00:59 Dose: 100 mls/hr Documented by: Piperacillin Sod/Tazobactam (Sod 3.375 gm/ Sodium Chloride) 50 mls @ 100 mls/hr IV Q6H [facility]
[2019-12-11] MEDS: Pantoprazole 40 MG in Sodium Chloride 0.9% 10 ML IV SCH (11:44)
[2019-12-11] MEDS ORDERED: Heparin Sodium 100 Units/ML 3 ML Syringe FLUSH ONE (13:20)
== END 2019-12-11 14:20 | disposition home or self-care (01) | DRG 722 ==
LOC: MW.ED 21:06 → MW.ICU 23:27 → MW.MS 12-09 12:27
PROVIDERS: ADMIT Internal Medicine; ATTEND Internal Medicine
PROC: 30233N1 Transfusion of Nonautologous Red Blood Cells into Peripheral Vein, Percutaneous Approach (ICD-10-PCS; principal; 2019-12-08)
DX: R50.9 Fever, unspecified (principal); D64.9 Anemia, unspecified; R19.5 Other fecal abnormalities; C55 Malignant neoplasm of uterus, part unspecified; I10 Essential (primary) hypertension; F41.9 Anxiety disorder, unspecified; Z98.51 Tubal ligation status; E87.2 Acidosis; Z20.828 Contact with and (suspected) exposure to other viral communicable diseases
CPT/HCPCS: 36415; 36430; 71045; 71045-26; 80048; 80053; 81001; 82272; 83605; 83735; 84100; 85025; 86850; 86900; 86901; 86920; 86921; 86922; 87040; 87324; 96365; 99283; 99284-25; A9270-GY; C9113; J1642; J1650; J2543; J3370; J3475; J7030; J7050; P9016; U0002

== ENCOUNTER 2019-12-15 20:09 | Inpatient (IN) | payer BC, OTHER ==
[2019-12-15] MEDS ORDERED: Sodium Chloride 0.9% 2.5 ML Syringe FLUSH PRN (21:02)
[2019-12-15] MEDS ORDERED: Sodium Chloride 0.9% 10 ML Syringe FLUSH PRN (21:02)
[2019-12-15] MEDS ORDERED: Sodium Chloride 0.9% 1,000 ML IV ONE ×2 (21:02→23:00)
[2019-12-15] MEDS ORDERED: Cefepime 2 GM in Sodium Chloride 0.9% 50 ML IV ONE (21:02)
--- NOTE | 2019-12-15 22:16 | CR ---
Chest: 2 views of the chest were obtained. Comparison: Prior chest x-ray of 12/08/19. Heart size and mediastinum are within normal limits. Lungs are clear with no acute parenchymal change. Bony structures appear within normal limits for the patient's age. Infusion port is noted entering from the right side. Impression: 1. Nothing acute is seen on 2 view chest x-ray. Diagnostic code #2 This report was dictated in MDT
[2019-12-15 22:57] LABS: POTASSIUM,K 4.4 mmol/L (3.5-5.1)
[2019-12-15] MEDS ORDERED: Ketorolac 15 MG/ML SDV IVPUSH STA (22:57)
[2019-12-15] MEDS ORDERED: Acetaminophen 325 MG Tab PO ONE (22:57)
[2019-12-15] MEDS ORDERED: Cefepime 2 GM in Premix Bag 1 BAG IV ONE (23:15)
[2019-12-15] MEDS ORDERED: Vancomycin 2 GM in Sodium Chloride 0.9% 500 ML IV ONE (23:15)
--- NOTE | 2019-12-16 01:20 | EDM.PDOC ---
ED HPI GENERAL MEDICAL PROBLEM - General Chief Complaint: Fever Stated Complaint: FEVER Time Seen by Provider: 12/15/19 21:07 Source of Information: Reports: Patient - History of Present Illness INITIAL COMMENTS - FREE TEXT/NARRATIVE: HISTORY AND PHYSICAL: History of present illness: This is a 44-year-old female with a history significant for uterine cancer, hypertension, recent admission to the hospital approximately 1 week ago secondary to a negative sepsis work-up who is currently receiving chemotherapy by Dr. Ordonez at [facility] who presents the ER today secondary to temperature of 101.6 that occurred shortly after receiving her chemotherapy earlier today. Patient denies any history of diabetes, liver, lung, kidney problems. Patient denies any history of coronary disease. Patient reports that she has had a total abdominal hysterectomy secondary to her uterine cancer. Patient denies any recent URI symptoms. Patient denies any COVID exposures. Patient reports that she had a COVID test last time she was here and it was negative. Patient reports she is nauseous but denies any vomiting or diarrhea. Patient eyes any dysuria frequency or urgency. Patient denies any abdominal pain chest pain shortness of breath or rashes. Patient reports that she had redness after receiving vancomycin when she was here last week and was told by the pharmacist that this was secondary to "red man" syndrome and that this was not a true allergy and she should be okay receiving it. Patient reports that she does have an allergy to sulfa drugs as well as ciprofloxacin. Review of systems: As per history of present illness and below otherwise all systems reviewed and negative. Past medical history: As per history of present illness and as reviewed below otherwise noncontributory. Surgical history: As per history of present illness and as reviewed below otherwise noncontributory. Social history: No reported history of drug or alcohol abuse. Family history: As per history of present illness and as reviewed below otherwise noncontributory. Physical exam: HEENT: Atraumatic, normocephalic, pupils reactive, negative for conjunctival pallor or scleral icterus, mucous membranes moist, throat clear, neck supple, nontender, trachea midline. Lungs: Clear to auscultation, breath sounds equal bilaterally, chest nontender. Heart: S1S2, regular, negative for clicks, rubs, or JVD. Abdomen: Soft, nondistended, nontender. Negative for masses or hepatosplenomegaly. Negative for costovertebral tenderness. Pelvis: Stable nontender. Genitourinary: Deferred. Rectal: Deferred. Extremities: Atraumatic, negative for cords or calf pain. Neurovascular unremarkable. Neuro: Awake, alert, oriented. Cranial nerves II through XII unremarkable. Cerebellum unremarkable. Motor and sensory unremarkable throughout. Exam nonfocal. Diagnostics: Chest Xray: Normal cardiac silhouette No infiltrates or effusions identified. No PTX No evidence of acute bony fracture. As interpreted by ER MD: Griffin Palumbo: Patient's labs are consistent with possible sepsis with an elevated lactic acid level, elevated temperature, tachycardia. Patient has been started empirically on vancomycin and cefepime secondary to her recent chemotherapy. Patient reports that she does get neutropenic with her chemotherapy. Assessment and plan: 44-year-old female who presents ER today secondary to fever after receiving chemotherapy. Patient has an elevated lactic acid level. Source of patient's fever at this time is unclear however she will be started empirically on broad- spectrum antibiotics including vancomycin and cefepime. Patient does have a Port-A-Cath in place. Patient's urinalysis was unremarkable. Patient's chest x-ray did not reveal any evidence of pneumonia. Definitive disposition and diagnosis as appropriate pending reevaluation and review of above. - Related Data Allergies Allergy/AdvReac Type Severity Reaction Status Date / Time ciprofloxacin [From Cipro] Allergy Tremors Verified 12/16/19 03:14 Sulfa (Sulfonamide Allergy Rash Verified 12/16/19 03:14 Antibiotics) Home Meds: Home Meds Metoprolol Succinate 50 mg PO BEDTIME 09/16/19 [History] Ondansetron [Zofran] 8 mg PO Q8H PRN 12/08/19 [History] Prochlorperazine [Compazine] 5 mg PO Q6H PRN 12/08/19 [History] Loperamide [Imodium] 2 mg PO Q6H PRN #30 cap 12/11/19 [Rx] Calcium Carbonate [Tums] 1,000 mg PO ASDIRECTED PRN 12/16/19 [History] Past Medical History HEENT History: Reports: Other (See Below) Other HEENT History: wears glasses, has permanent lower dental retainer Cardiovascular History: Reports: Hypertension, Other (See Below) Other Cardiovascular History: hx of palpitations, twice a month, mostly all day on and off- stopped by themself Respiratory History: Reports: None Gastrointestinal History: Reports: GERD Genitourinary History: Reports: Other (See Below) Other Genitourinary History: has left renal mass (cyst) [employer]AC[employer] 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 History: Reports: Fibroids, Polycystic Ovaries, , Spontaneous Musculoskeletal History: Reports: None Neurological History: Reports: Migraines, Other (See Below) Other Neuro History: monthly migraines- takes Ibuprofen, hx of motion sickness Psychiatric History: Reports: Anxiety Other Psychiatric History: does not take any medication Endocrine/Metabolic History: Reports: None Insulin Pump Model and Firer Kiln: None Hematologic History: Reports: None Immunologic History: Reports: None Oncologic (Cancer) History: Reports: Uterine Dermatologic History: Reports: None - Infectious Disease History Infectious Disease History: Reports: None - Past Surgical History Head Surgeries/Procedures: Reports: None Female Surgical History: Reports: D&C, Endometrial Ablation, Hysterectomy, LEEP, Tubal Ligation Other Female Surgeries/Procedures: several D & C's -4 Musculoskeletal Surgical History: Reports: Arthroscopic Knee Social & Family History - Family History Family Medical History: Noncontributory - Tobacco Use Smoking Status *Q: Unknown Ever Smoked - Caffeine Use Caffeine Use: Reports: None - Recreational Drug Use Recreational Drug Use: No ED ROS GENERAL - Review of Systems Review Of Systems: Comprehensive ROS is negative, except as noted in HPI. ED EXAM, GENERAL - Physical Exam Exam: See Below Course - Vital Signs Last Recorded V/S: Last Vital Signs Temp 97.6 F 12/16/19 19:46 Pulse 80 12/16/19 19:46 Resp 17 12/16/19 19:46 BP 135/63 12/16/19 19:46 Pulse Ox 98 12/16/19 19:46 - Orders/Labs/Meds Orders: Active Orders 24 hr Category Date Time Status CULTURE BLOOD [BC] Stat Lab 12/15/19 22:11 Received CULTURE BLOOD [BC] Stat Lab 12/15/19 22:37 Received CULTURE URINE [RM] Stat Lab 12/15/19 22:07 Received Blood Culture x2 Reflex Set [OM.PC] Stat Oth 12/15/19 21:02 Ordered Saline Lock Insert [OM.PC] Stat Oth 12/15/19 21:02 Ordered Severe Sepsis Onset Time [OM.PC] Stat Oth 12/15/19 21:02 Ordered Medication Orders Calcium Carbonate/Glycine (Tums) 1,000 mg PO ASDIRECTED PRN PRN Reason: Heartburn Heparin Sodium (Porcine) (Heparin Sodium) 5,000 units SUBCUT Q8H [facility] Last Admin: 12/16/19 19:56 Dose: Not Given Documented by: Admin: 12/16/19 12:06 Dose: Not Given Documented by: DANNY Sodium Chloride (Normal Saline) 1,000 mls @ 125 mls/hr IV ASDIRECTED [facility] Last Admin: 12/16/19 12:03 Dose: 125 mls/hr Documented by: Infusion: 12/16/19 11:55 Dose: 125 mls/hr Documented by: Admin: 12/16/19 03:55 Dose: 125 mls/hr Documented by: AYAH Cefepime HCl 2 gm/ Premix 50 mls @ 100 mls/hr IV Q12H [facility] Last Admin: 12/16/19 10:38 Dose: 100 mls/hr Documented by: DANNY Metoprolol Succinate (Toprol Xl) 50 mg PO BEDTIME [facility] Morphine Sulfate (Morphine) 2 mg IVPUSH Q2H PRN PRN Reason: Pain (severe 7-10) Ondansetron HCl (Zofran) 4 mg IVPUSH Q4H PRN PRN Reason: Nausea/Vomitting Prochlorperazine Maleate (Compazine) 5 mg PO Q6H PRN PRN Reason: Vomiting Sodium Chloride (Saline Flush) 10 ml FLUSH ASDIRECTED PRN PRN Reason: IV Use Labs: Laboratory Tests 12/15/19 12/15/19 12/15/19 Range/Units 22:07 22:11 22:11 WBC 5.83 (4.0-11.0) K/uL RBC 4.73 (4.30-5.90) M/uL Hgb 12.0 (12.0-16.0) g/dL Hct 37.1 (36.0-46.0) % MCV 78.4 L (80.0-98.0) fL MCH 25.4 L (27.0-32.0) pg MCHC 32.3 (31.0-37.0) g/dL RDW Std Deviation 42.5 (28.0-62.0) fl RDW Coeff of George 15 (11.0-15.0) % Plt Count 153 (150-400) K/uL MPV 9.90 (7.40-12.00) fL Neut % (Auto) 94.2 H (48.0-80.0) % Lymph % (Auto) 1.0 L (16.0-40.0) % Leon % (Auto) 4.3 (0.0-15.0) % Eos % (Auto) 0.3 (0.0-7.0) % Baso % (Auto) 0.2 (0.0-1.5) % Neut # (Auto) 5.5 (1.4-5.7) K/uL Lymph # (Auto) 0.1 L (0.6-2.4) K/uL Leon # (Auto) 0.3 (0.0-0.8) K/uL Eos # (Auto) 0.0 (0.0-0.7) K/uL Baso # (Auto) 0.0 (0.0-0.1) K/uL Nucleated RBC % 0.0 /100WBC Nucleated RBCs # 0 K/uL Lactate 3.9 H* (0.20-2.00) mmol/L Sodium (136-145) mmol/L Potassium (3.5-5.1) mmol/L Chloride (98-107) mmol/L Carbon Dioxide (21.0-32.0) mmol/L BUN (7.0-18.0) mg/dL Creatinine (0.6-1.0) mg/dL Est Cr Clr Drug Dosing mL/min Estimated GFR (MDRD) ml/min Glucose (74-106) mg/dL Calcium (8.5-10.1) mg/dL Total Bilirubin (0.2-1.0) mg/dL AST (15-37) IU/L ALT (14-63) IU/L Alkaline Phosphatase (46-116) U/L Total Protein (6.4-8.2) g/dL Albumin (3.4-5.0) g/dL Globulin (2.6-4.0) g/dL Albumin/Globulin Ratio (0.9-1.6) Urine Color YELLOW Urine Appearance HAZY Urine pH 5.5 (5.0-8.0) Ur Specific [place] 1.025 (1.001-1.035) Urine Protein TRACE H (NEGATIVE) mg/dL Urine Glucose (UA) NEGATIVE (NEGATIVE) mg/dL Urine Ketones NEGATIVE (NEGATIVE) mg/dL Urine Occult Blood LARGE H (NEGATIVE) Urine Nitrite NEGATIVE (NEGATIVE) Urine Bilirubin NEGATIVE (NEGATIVE) Urine Urobilinogen 0.2 (<2.0) EU/dL Ur Leukocyte Esterase NEGATIVE (NEGATIVE) U Hyaline Cast (Auto) 0-2 (0-2/LPF) Urine RBC 40-45 (0-2/HPF) Urine WBC 1-3 (0-5/HPF) Ur Epithelial Cells MODERATE (NONE-FEW) Urine Bacteria FEW (NEGATIVE) Urine Mucus LIGHT (NONE-MOD) COVID-19 (CATA) (NEGATIVE) 12/15/19 12/15/19 Range/Units 22:11 23:45 WBC (4.0-11.0) K/uL RBC (4.30-5.90) M/uL Hgb (12.0-16.0) g/dL Hct (36.0-46.0) % MCV (80.0-98.0) fL MCH (27.0-32.0) pg MCHC (31.0-37.0) g/dL RDW Std Deviation (28.0-62.0) fl RDW Coeff of George (11.0-15.0) % Plt Count (150-400) K/uL MPV (7.40-12.00) fL Neut % (Auto) (48.0-80.0) % Lymph % (Auto) (16.0-40.0) % Leon % (Auto) (0.0-15.0) % Eos % (Auto) (0.0-7.0) % Baso % (Auto) (0.0-1.5) % Neut # (Auto) (1.4-5.7) K/uL Lymph # (Auto) (0.6-2.4) K/uL Leon # (Auto) (0.0-0.8) K/uL Eos # (Auto) (0.0-0.7) K/uL Baso # (Auto) (0.0-0.1) K/uL Nucleated RBC % /100WBC Nucleated RBCs # K/uL Lactate (0.20-2.00) mmol/L Sodium 134 L (136-145) mmol/L Potassium 4.4 (3.5-5.1) mmol/L Chloride 100 (98-107) mmol/L Carbon Dioxide 20.0 L (21.0-32.0) mmol/L BUN 16 (7.0-18.0) mg/dL Creatinine 1.3 H (0.6-1.0) mg/dL Est Cr Clr Drug Dosing 44.73 mL/min Estimated GFR (MDRD) 44.1 ml/min Glucose 141 H (74-106) mg/dL Calcium 8.5 (8.5-10.1) mg/dL Total Bilirubin 0.4 (0.2-1.0) mg/dL AST 29 (15-37) IU/L ALT 54 (14-63) IU/L Alkaline Phosphatase 60 (46-116) U/L Total Protein 7.5 (6.4-8.2) g/dL Albumin 3.8 (3.4-5.0) g/dL Globulin 3.7 (2.6-4.0) g/dL Albumin/Globulin Ratio 1.0 (0.9-1.6) Urine Color Urine Appearance Urine pH (5.0-8.0) Ur Specific [place] (1.001-1.035) Urine Protein (NEGATIVE) mg/dL Urine Glucose (UA) (NEGATIVE) mg/dL Urine Ketones (NEGATIVE) mg/dL Urine Occult Blood (NEGATIVE) Urine Nitrite (NEGATIVE) Urine Bilirubin (NEGATIVE) Urine Urobilinogen (<2.0) EU/dL Ur Leukocyte Esterase (NEGATIVE) U Hyaline Cast (Auto) (0-2/LPF) Urine RBC (0-2/HPF) Urine WBC (0-5/HPF) Ur Epithelial Cells (NONE-FEW) Urine Bacteria (NEGATIVE) Urine Mucus (NONE-MOD) COVID-19 (CATA) NEGATIVE (NEGATIVE) Meds: Medications Generic Name Dose Route Start Last Admin Trade Name Freq PRN Reason Stop Dose Admin Calcium Carbonate/Glycine 1,000 mg 12/16/19 08:19 Tums PO ASDIRECTED PRN Heartburn Heparin Sodium (Porcine) 5,000 units 12/16/19 11:30 12/16/19 19:56 Heparin Sodium SUBCUT Not Given Q8H ELIZABETH Sodium Chloride 1,000 mls @ 125 mls/hr 12/16/19 03:45 12/16/19 12:03 Normal Saline IV 125 mls/hr ASDIRECTED ELIZABETH Administration Cefepime HCl 2 gm/ Premix 50 mls @ 100 mls/hr 12/16/19 11:00 12/16/19 10:38 IV 100 mls/hr Q12H ELIZABETH Administration Metoprolol Succinate 50 mg 12/16/19 21:00 Toprol Xl PO BEDTIME ELIZABETH Morphine Sulfate 2 mg 12/16/19 08:17 Morphine IVPUSH Q2H PRN Pain (severe 7-10) Ondansetron HCl 4 mg 12/16/19 03:46 Zofran IVPUSH Q4H PRN Nausea/Vomitting Prochlorperazine Maleate 5 mg 12/16/19 08:19 Compazine PO Q6H PRN Vomiting Sodium Chloride 10 ml 12/16/19 08:16 Saline Flush FLUSH ASDIRECTED PRN IV Use Discontinued Medications Generic Name Dose Route Start Last Admin Trade Name Freq PRN Reason Stop Dose Admin Acetaminophen 650 mg 12/15/19 22:57 12/15/19 23:17 Tylenol PO 12/15/19 22:58 650 mg NOW ONE Administration Sodium Chloride 1,000 mls @ 1,000 mls/hr 12/15/19 21:02 12/15/19 22:58 Normal Saline IV 12/15/19 22:01 1,000 mls/hr .Bolus ONE Administration Sodium Chloride 1,000 mls @ 1,000 mls/hr 12/15/19 23:00 12/15/19 23:05 Normal Saline IV 12/15/19 23:59 1,000 mls/hr BOLUS ONE Administration Cefepime HCl 2 gm/ Premix 50 mls @ 100 mls/hr 12/15/19 23:15 12/15/19 23:19 IV 12/15/19 23:44 100 mls/hr ONETIME ONE Administration Vancomycin HCl 2 gm/ Sodium 500 mls @ 333.333 mls/hr 12/15/19 23:15 12/15/19 23:44 Chloride IV 12/16/19 00:44 333.333 mls/hr ONETIME ONE Administration Cefepime HCl 1 gm/ Premix 50 mls @ 100 mls/hr 12/16/19 03:15 12/16/19 13:05 IV Not Given Q12H ELIZABETH Ketorolac Tromethamine 15 mg 12/15/19 22:57 12/15/19 23:17 Toradol IVPUSH 12/15/19 22:58 15 mg ONETIME STA Administration Sodium Chloride 10 ml 12/15/19 21:02 Saline Flush FLUSH ASDIRECTED PRN Keep Vein Open Sodium Chloride 2.5 ml 12/15/19 21:02 Saline Flush FLUSH ASDIRECTED PRN Keep Vein Open Departure - Departure Time of Disposition: :19 Disposition: Admitted As Inpatient 64 Condition: Good Clinical Impression: Sepsis - Discharge Information Sepsis Event Note (ED) - Evaluation Sepsis Screening Result: Possible Sepsis Risk - My Orders Last 24 Hours: My Active Orders 12/15/19 21:02 Blood Culture x2 Reflex Set [OM.PC] Stat Saline Lock Insert [OM.PC] Stat Severe Sepsis Onset Time [OM.PC] Stat 12/15/19 22:07 CULTURE URINE [RM] Stat 12/15/19 22:11 CULTURE BLOOD [BC] Stat 12/15/19 22:37 CULTURE BLOOD [BC] Stat - Assessment/Plan Last 24 Hours: My Active Orders 12/15/19 21:02 Blood Culture x2 Reflex Set [OM.PC] Stat Saline Lock Insert [OM.PC] Stat Severe Sepsis Onset Time [OM.PC] Stat 12/15/19 22:07 CULTURE URINE [RM] Stat 12/15/19 22:11 CULTURE BLOOD [BC] Stat 12/15/19 22:37 CULTURE BLOOD [BC] Stat
[2019-12-16] MEDS ORDERED: Cefepime 1 GM in Premix Bag 1 BAG IV SCH (03:15)
[2019-12-16] MEDS ORDERED: Ondansetron 4 MG/2 ML SDV IVPUSH PRN (03:46)
[2019-12-16] MEDS: Sodium Chloride 0.9% 1,000 ML IV SCH ×3 (03:55→20:55)
[2019-12-16 06:39] LABS: POTASSIUM,K 4.6 mmol/L (3.5-5.1)
[2019-12-16] MEDS ORDERED: Sodium Chloride 0.9% 10 ML Syringe FLUSH PRN (08:16)
[2019-12-16] MEDS ORDERED: Morphine 2 MG/ML SYRINGE IVPUSH PRN (08:17)
[2019-12-16] MEDS ORDERED: Calcium Carbonate 500 MG Tab.Chew PO PRN (08:19)
[2019-12-16] MEDS ORDERED: Prochlorperazine 10 MG Tab PO PRN (08:19)
--- NOTE | 2019-12-16 08:20 | PCM.HP.2 ---
H&P History of Present Illness - General Date of Service: 12/16/19 Admit Problem/Dx: Admission Diagnosis/Problem Admission Diagnosis/Problem Sepsis Source of Information: Patient History Limitations: Reports: No Limitations - History of Present Illness Initial Comments - Free Text/Narative: This 44 year old female with pmh uterine cancer who is currently undergoing chemotherapy and radiation therapy. Patient did have chemotherapy yesterday along with radiation. Her temperature was 101.6 last evening so she presented to the ED. She was discharged Friday after similar incident last week. She was worked up for sepsis and treated with no source found. Dr Ordonez felt this could be related to radiation and chemotherapy. She denies any cough, diarrhea, shortness of breath or pain. Reports dysuria, but has had this since stents were placed 3 months ago. Reports these are to stay in for [address] Pitt and during radiation. Denies skin rash or redness. No concerns with port. :Last admission Hgb dipped to 7.6, she did receive 1 unit PRBCs. In the ED CBC WNL. Lactic acid 3.9 after fluids came down to 3.1. Na 134, Biacrb 20 BUN 16, Cr 1.3, Ua negative, COVID negative CXR negative. She was given 2 L LR as well as Cefepime and Vancomycin. UC and BC obtained. She will be admitted for fever post chemotherapy. - Related Data Allergies/Adverse Reactions: Allergies Allergy/AdvReac Type Severity Reaction Status Date / Time ciprofloxacin [From Cipro] Allergy Tremors Verified 12/16/19 03:14 Sulfa (Sulfonamide Allergy Rash Verified 12/16/19 03:14 Antibiotics) Home Medications: Home Meds Metoprolol Succinate 50 mg PO BEDTIME 09/16/19 [History] Ondansetron [Zofran] 8 mg PO Q8H PRN 12/08/19 [History] Prochlorperazine [Compazine] 5 mg PO Q6H PRN 12/08/19 [History] Loperamide [Imodium] 2 mg PO Q6H PRN #30 cap 12/11/19 [Rx] Calcium Carbonate [Tums] 1,000 mg PO ASDIRECTED PRN 12/16/19 [History] Past Medical History HEENT History: Reports: Other (See Below) Other HEENT History: wears glasses, has permanent lower dental retainer Cardiovascular History: Reports: Hypertension, Other (See Below) Other Cardiovascular History: hx of palpitations, twice a month, mostly all day on and off- stopped by themself Respiratory History: Reports: None Gastrointestinal History: Reports: GERD Genitourinary History: Reports: Other (See Below) Other Genitourinary History: has left renal mass (cyst) DESIGN TRANSFERRER History: Reports: Fibroids, Polycystic Ovaries, , Spontaneous Musculoskeletal History: Reports: None Neurological History: Reports: Migraines, Other (See Below) Other Neuro History: monthly migraines- takes Ibuprofen, hx of motion sickness Psychiatric History: Reports: Anxiety Other Psychiatric History: does not take any medication Endocrine/Metabolic History: Reports: None Insulin Pump Model and Heel Slicker: None Hematologic History: Reports: None Immunologic History: Reports: None Oncologic (Cancer) History: Reports: Uterine Dermatologic History: Reports: None - Infectious Disease History Infectious Disease History: Reports: None - Past Surgical History Head Surgeries/Procedures: Reports: None Female Surgical History: Reports: D&C, Endometrial Ablation, Hysterectomy, LEEP, Tubal Ligation Other Female Surgeries/Procedures: several D & C's -4 Musculoskeletal Surgical History: Reports: Arthroscopic Knee Social & Family History - Family History Family Medical History: Noncontributory - Tobacco Use Smoking Status *Q: Never Smoker - Caffeine Use Caffeine Use: Reports: None - Recreational Drug Use Recreational Drug Use: No H&P Review of Systems - Review of Systems: Review Of Systems: See Below General: Reports: Fever (none since yesterday evening). Denies: Chills, Malaise, Weakness Pulmonary: Reports: No Symptoms. Denies: Shortness of Breath Cardiovascular: Reports: No Symptoms. Denies: Chest Pain Gastrointestinal: Reports: No Symptoms. Denies: Abdominal Pain, Black Stool, Bloody Stool, Nausea, Vomiting Genitourinary: Reports: No Symptoms. Denies: Dysuria, Frequency, Burning Musculoskeletal: Reports: No Symptoms Skin: Reports: No Symptoms Psychiatric: Reports: No Symptoms Neurological: Reports: No Symptoms Hematologic/Lymphatic: Reports: No Symptoms Immunologic: Reports: No Symptoms Exam - Exam Exam: See Below - Vital Signs Vital Signs: Last Vital Signs Temp 96.8 F L 12/16/19 07:40 Pulse 77 12/16/19 07:40 Resp 18 12/16/19 07:40 BP 126/59 L 12/16/19 07:40 Pulse Ox 97 12/16/19 07:40 Weight: 76.657 kg - Exam General: Alert, Oriented, Cooperative HEENT: Conjunctiva Clear, Mucosa Moist & [place]in[place], Pupils Equal Neck: Supple, Trachea Midline Lungs: Clear to Auscultation, Normal Respiratory Effort Cardiovascular: Regular Rate, Regular Rhythm GI/Abdominal Exam: Normal Bowel Sounds, Soft, Non-Tender, No Distention Back Exam: Normal Inspection, Full Range of Motion Extremities: Normal Inspection, Normal Range of Motion, Non-Tender, No Pedal Edema Skin: Warm, Dry, Intact, Other (Port to R chest intact with no erythema or tenderness) Neuro Extensive - Mental Status: Alert, Oriented x3 Neuro Extensive - Motor, Sensory, Reflexes: CN II-XII Intact Psychiatric: Alert, Normal Affect, Normal Mood - Patient Data Lab Results Last 24 hrs: Laboratory Results - last 24 hr 12/15/19 12/15/19 12/15/19 Range/Units 22:07 22:11 22:11 WBC 5.83 (4.0-11.0) K/uL RBC 4.73 (4.30-5.90) M/uL Hgb 12.0 (12.0-16.0) g/dL Hct 37.1 (36.0-46.0) % MCV 78.4 L (80.0-98.0) fL MCH 25.4 L (27.0-32.0) pg MCHC 32.3 (31.0-37.0) g/dL RDW Std Deviation 42.5 (28.0-62.0) fl RDW Coeff of George 15 (11.0-15.0) % Plt Count 153 (150-400) K/uL MPV 9.90 (7.40-12.00) fL Neut % (Auto) 94.2 H (48.0-80.0) % Lymph % (Auto) 1.0 L (16.0-40.0) % [place] % (Auto) 4.3 (0.0-15.0) % Eos % (Auto) 0.3 (0.0-7.0) % Baso % (Auto) 0.2 (0.0-1.5) % Neut # (Auto) 5.5 (1.4-5.7) K/uL Lymph # (Auto) 0.1 L (0.6-2.4) K/uL [place] # (Auto) 0.3 (0.0-0.8) K/uL Eos # (Auto) 0.0 (0.0-0.7) K/uL Baso # (Auto) 0.0 (0.0-0.1) K/uL Nucleated RBC % 0.0 /100WBC Nucleated RBCs # 0 K/uL Lactate 3.9 H* (0.20-2.00) mmol/L Sodium (136-145) mmol/L Potassium (3.5-5.1) mmol/L Chloride (98-107) mmol/L Carbon Dioxide (21.0-32.0) mmol/L BUN (7.0-18.0) mg/dL Creatinine (0.6-1.0) mg/dL Est Cr Clr Drug Dosing mL/min Estimated GFR (MDRD) ml/min Glucose (74-106) mg/dL Calcium (8.5-10.1) mg/dL Total Bilirubin (0.2-1.0) mg/dL AST (15-37) IU/L ALT (14-63) IU/L Alkaline Phosphatase (46-116) U/L Total Protein (6.4-8.2) g/dL Albumin (3.4-5.0) g/dL Globulin (2.6-4.0) g/dL Albumin/Globulin Ratio (0.9-1.6) Urine Color YELLOW Urine Appearance HAZY Urine pH 5.5 (5.0-8.0) Ur Specific [place] 1.025 (1.001-1.035) Urine Protein TRACE H (NEGATIVE) mg/dL Urine Glucose (UA) NEGATIVE (NEGATIVE) mg/dL Urine Ketones NEGATIVE (NEGATIVE) mg/dL Urine Occult Blood LARGE H (NEGATIVE) Urine Nitrite NEGATIVE (NEGATIVE) Urine Bilirubin NEGATIVE (NEGATIVE) Urine Urobilinogen 0.2 (<2.0) EU/dL Ur Leukocyte Esterase NEGATIVE (NEGATIVE) U Hyaline Cast (Auto) 0-2 (0-2/LPF) Urine RBC 40-45 (0-2/HPF) Urine WBC 1-3 (0-5/HPF) Ur Epithelial Cells MODERATE (NONE-FEW) Urine Bacteria FEW (NEGATIVE) Urine Mucus LIGHT (NONE-MOD) COVID-19 (CATA) (NEGATIVE) 12/15/19 12/15/19 12/16/19 Range/Units 22:11 23:45 02:37 WBC (4.0-11.0) K/uL RBC (4.30-5.90) M/uL Hgb (12.0-16.0) g/dL Hct (36.0-46.0) % MCV (80.0-98.0) fL MCH (27.0-32.0) pg MCHC (31.0-37.0) g/dL RDW Std Deviation (28.0-62.0) fl RDW Coeff of George (11.0-15.0) % Plt Count (150-400) K/uL MPV (7.40-12.00) fL Neut % (Auto) (48.0-80.0) % Lymph % (Auto) (16.0-40.0) % [place] % (Auto) (0.0-15.0) % Eos % (Auto) (0.0-7.0) % Baso % (Auto) (0.0-1.5) % Neut # (Auto) (1.4-5.7) K/uL Lymph # (Auto) (0.6-2.4) K/uL [place] # (Auto) (0.0-0.8) K/uL Eos # (Auto) (0.0-0.7) K/uL Baso # (Auto) (0.0-0.1) K/uL Nucleated RBC % /100WBC Nucleated RBCs # K/uL Lactate 3.1 H* (0.20-2.00) mmol/L Sodium 134 L (136-145) mmol/L Potassium 4.4 (3.5-5.1) mmol/L Chloride 100 (98-107) mmol/L Carbon Dioxide 20.0 L (21.0-32.0) mmol/L BUN 16 (7.0-18.0) mg/dL Creatinine 1.3 H (0.6-1.0) mg/dL Est Cr Clr Drug Dosing 44.73 mL/min Estimated GFR (MDRD) 44.1 ml/min Glucose 141 H (74-106) mg/dL Calcium 8.5 (8.5-10.1) mg/dL Total Bilirubin 0.4 (0.2-1.0) mg/dL AST 29 (15-37) IU/L ALT 54 (14-63) IU/L Alkaline Phosphatase 60 (46-116) U/L Total Protein 7.5 (6.4-8.2) g/dL Albumin 3.8 (3.4-5.0) g/dL Globulin 3.7 (2.6-4.0) g/dL Albumin/Globulin Ratio 1.0 (0.9-1.6) Urine Color Urine Appearance Urine pH (5.0-8.0) Ur Specific [place] (1.001-1.035) Urine Protein (NEGATIVE) mg/dL Urine Glucose (UA) (NEGATIVE) mg/dL Urine Ketones (NEGATIVE) mg/dL Urine Occult Blood (NEGATIVE) Urine Nitrite (NEGATIVE) Urine Bilirubin (NEGATIVE) Urine Urobilinogen (<2.0) EU/dL Ur Leukocyte Esterase (NEGATIVE) U Hyaline Cast (Auto) (0-2/LPF) Urine RBC (0-2/HPF) Urine WBC (0-5/HPF) Ur Epithelial Cells (NONE-FEW) Urine Bacteria (NEGATIVE) Urine Mucus (NONE-MOD) COVID-19 (CATA) NEGATIVE (NEGATIVE) 12/16/19 12/16/19 Range/Units 05:48 05:48 WBC 3.76 L (4.0-11.0) K/uL RBC 4.06 L (4.30-5.90) M/uL Hgb 10.2 L (12.0-16.0) g/dL Hct 32.1 L (36.0-46.0) % MCV 79.1 L (80.0-98.0) fL MCH 25.1 L (27.0-32.0) pg MCHC 31.8 (31.0-37.0) g/dL RDW Std Deviation 42.9 (28.0-62.0) fl RDW Coeff of George 16 H (11.0-15.0) % Plt Count 131 L (150-400) K/uL MPV 10.10 (7.40-12.00) fL Neut % (Auto) 90.4 H (48.0-80.0) % Lymph % (Auto) 2.4 L (16.0-40.0) % [place] % (Auto) 5.6 (0.0-15.0) % Eos % (Auto) 1.3 (0.0-7.0) % Baso % (Auto) 0.3 (0.0-1.5) % Neut # (Auto) 3.4 (1.4-5.7) K/uL Lymph # (Auto) 0.1 L (0.6-2.4) K/uL [place] # (Auto) 0.2 (0.0-0.8) K/uL Eos # (Auto) 0.1 (0.0-0.7) K/uL Baso # (Auto) 0.0 (0.0-0.1) K/uL Nucleated RBC % 0.0 /100WBC Nucleated RBCs # 0 K/uL Lactate (0.20-2.00) mmol/L Sodium 140 (136-145) mmol/L Potassium 4.6 (3.5-5.1) mmol/L Chloride 106 (98-107) mmol/L Carbon Dioxide 22.0 (21.0-32.0) mmol/L BUN 16 (7.0-18.0) mg/dL Creatinine 1.1 H (0.6-1.0) mg/dL Est Cr Clr Drug Dosing 52.86 mL/min Estimated GFR (MDRD) 53.5 ml/min Glucose 122 H (74-106) mg/dL Calcium 7.9 L (8.5-10.1) mg/dL Total Bilirubin (0.2-1.0) mg/dL AST (15-37) IU/L ALT (14-63) IU/L Alkaline Phosphatase (46-116) U/L Total Protein (6.4-8.2) g/dL Albumin (3.4-5.0) g/dL Globulin (2.6-4.0) g/dL Albumin/Globulin Ratio (0.9-1.6) Urine Color Urine Appearance Urine pH (5.0-8.0) Ur Specific [place] (1.001-1.035) Urine Protein (NEGATIVE) mg/dL Urine Glucose (UA) (NEGATIVE) mg/dL Urine Ketones (NEGATIVE) mg/dL Urine Occult Blood (NEGATIVE) Urine Nitrite (NEGATIVE) Urine Bilirubin (NEGATIVE) Urine Urobilinogen (<2.0) EU/dL Ur Leukocyte Esterase (NEGATIVE) U Hyaline Cast (Auto) (0-2/LPF) Urine RBC (0-2/HPF) Urine WBC (0-5/HPF) Ur Epithelial Cells (NONE-FEW) Urine Bacteria (NEGATIVE) Urine Mucus (NONE-MOD) COVID-19 (CATA) (NEGATIVE) Result Diagrams: 12/16/19 05:48 12/16/19 05:48 Sepsis Event Note - Evaluation Sepsis Screening Result: No Definite Risk - Focused Exam Vital Signs: Vital Signs Temp Pulse Resp BP BP Pulse Ox 12/16/19 07:40 96.8 F L 77 18 126/59 L 97 12/16/19 03:21 97.6 F 81 16 127/68 97 12/16/19 01:00 95 16 132/55 L 98 12/15/19 23:20 99.2 F 12/15/19 22:49 111 H 19 142/76 H 96 12/15/19 20:21 101.5 F H 114 H 20 168/85 H 97 Date Exam was Performed: 12/16/19 Time Exam was Performed: 11:19 - Problem List (1) Fever SNOMED Code(s): 466639045 ICD Code: R50.9 - FEVER, UNSPECIFIED Status: Acute Current Visit: No (2) Port-A-Cath in place SNOMED Code(s): 958575669 ICD Code: Z95.828 - PRESENCE OF OTHER VASCULAR IMPLANTS AND GRAFTS Status: Acute Current Visit: No (3) Uterine cancer SNOMED Code(s): 085662143 ICD Code: C55 - MALIGNANT NEOPLASM OF UTERUS, PART UNSPECIFIED Status: Acute Current Visit: No Problem List Initiated/Reviewed/Updated: Yes Orders Last 24hrs: Active Orders 24 hr Category Date Time Status Patient Status [ADT] Routine ADT 12/16/19 01:44 Active Blood Pressure Mgt: Sepsis [RC] Q15MX2 Care 12/15/19 21:05 Active Cardiac Monitoring [RC] CONTINUOUS Care 12/15/19 21:03 Active Intake and Output [RC] QSHIFT Care 12/16/19 08:17 Active Oxygen Therapy [RC] PRN Care 12/16/19 08:17 Active Up With Assistance [RC] ASDIRECTED Care 12/16/19 08:17 Active VTE/DVT Education [RC] PER UNIT ROUTINE Care 12/16/19 08:17 Active Vital Signs [RC] Q4H Care 12/16/19 08:17 Active Regular Diet [DIET] Diet 12/16/19 Breakfast Active BASIC METABOLIC PANEL,BMP [CHEM] AM Lab 12/17/19 05:11 Ordered CBC WITH AUTO DIFF [HEME] AM Lab 12/17/19 05:11 Ordered CULTURE BLOOD [BC] Stat Lab 12/15/19 22:11 Received CULTURE BLOOD [BC] Stat Lab 12/15/19 22:37 Received CULTURE URINE [RM] Stat Lab 12/15/19 22:07 Received LACTIC ACID,WHOLE BLOOD [BG] Q6H Lab 12/16/19 08:30 Ordered LACTIC ACID,WHOLE BLOOD [BG] Q6H Lab 12/16/19 14:30 Ordered LACTIC ACID,WHOLE BLOOD [BG] Q6H Lab 12/16/19 20:30 Ordered Calcium Carbonate [Tums] Med 12/16/19 08:19 Ordered 1,000 mg PO ASDIRECTED PRN Cefepime [Maxipime in D5W 2 GM/50 ML] 2 gm Med 12/16/19 11:00 Active Premix Bag 1 bag IV Q12H Metoprolol Succinate [Toprol XL] Med 12/16/19 21:00 Ordered 50 mg PO BEDTIME Morphine Med 12/16/19 08:17 Ordered 2 mg IVPUSH Q2H PRN Ondansetron [Zofran] Med 12/16/19 03:46 Active 4 mg IVPUSH Q4H PRN Prochlorperazine [Compazine] Med 12/16/19 08:19 Ordered 5 mg PO Q6H PRN Sodium Chloride 0.9% [Normal Saline] 1,000 ml Med 12/16/19 03:45 Active IV ASDIRECTED Sodium Chloride 0.9% [Saline Flush] Med 12/16/19 08:16 Active 10 ml FLUSH ASDIRECTED PRN Blood Culture x2 Reflex Set [OM.PC] Stat Ot 12/15/19 21:02 Ordered Saline Lock Insert [OM.PC] Stat Oth 12/15/19 21:02 Ordered Severe Sepsis Onset Time [OM.PC] Stat Oth 12/15/19 21:02 Ordered Resuscitation Status Routine Resus Stat 12/16/19 08:17 Ordered Medication Orders Sodium Chloride (Normal Saline) 1,000 mls @ 125 mls/hr IV ASDIRECTED [facility] Last Admin: 12/16/19 03:55 Dose: 125 mls/hr Documented by: AYAH Cefepime HCl 2 gm/ Premix 50 mls @ 100 mls/hr IV Q12H [facility] Morphine Sulfate (Morphine) 2 mg IVPUSH Q2H PRN PRN Reason: Pain (severe 7-10) Ondansetron HCl (Zofran) 4 mg IVPUSH Q4H PRN PRN Reason: Nausea/Vomitting Sodium Chloride (Saline Flush) 10 ml FLUSH ASDIRECTED PRN PRN Reason: IV Use Assessment/Plan Comment:: This 44 year old female with pmh of uterine cancer, s/p hysterectomy admitted with fever 1. Fever - Continue treatment with Cefepime 2 gm q12h IV - BC and UC pending - Check abd/pelvis CT due to ureteral stents in place. - Continue IVFs today. - Lactic acidosis resolved. VTE prophylaxis: Heparin Dispo: 2 days
[2019-12-16] MEDS: Cefepime 2 GM in Premix Bag 1 BAG IV SCH ×2 (10:38→23:35)
[2019-12-16] MEDS: Heparin Sodium 5,000 Units/ML Vial SUBCUT SCH ×2 (12:06→19:56)
--- NOTE | 2019-12-16 13:25 | CT ---
CT abdomen and pelvis Technique: Multiple axial sections were obtained from above the dome of the diaphragm inferiorly through the pubic symphysis. Intravenous contrast and oral contrast not utilized. Comparison: Prior CT abdomen and pelvis exam of 08/13/19 is available. Findings: Visualized lung bases show nothing acute. Fatty infiltration seen within the liver. Spleen appears within normal limits. Adrenal glands show no nodule. Pancreas shows no discrete abnormality. Kidneys show no abnormal calcifications. Right-sided collecting system is mildly prominent. Bilateral ureteral stents are seen. Proximal ends of the stents located within the renal pelvis on both sides. Distal ends of the stents are within the bladder. Aorta shows no aneurysm. No retroperitoneal adenopathy or mesenteric abnormalities are seen. No pelvic mass or adenopathy is seen. No free fluid or inflammatory change is appreciated. Previous hysterectomy is noted. Appendix is felt to be visualized and is normal in size. Bone window settings were reviewed which shows no acute osseous finding. Impression: 1. Bilateral ureteral stents. Mildly dilated collecting system of the right kidney. 2. Fatty infiltration within the liver. 3. No additional abnormality is appreciated on noncontrast CT study of the abdomen and pelvis. Diagnostic code #2 This report was dictated in MDT
[2019-12-16] MEDS ORDERED: Metoprolol Succinate 50 MG Tab.ER PO SCH (21:00)
[2019-12-17] MEDS: Heparin Sodium 5,000 Units/ML Vial SUBCUT SCH ×2 (04:13→11:21)
[2019-12-17] MEDS: Sodium Chloride 0.9% 1,000 ML IV SCH (05:07)
[2019-12-17 05:54] LABS: CARBON DIOXIDE,CO2 23.2 mmol/L (21.0-32.0); POTASSIUM,K 3.9 mmol/L (3.5-5.1)
--- NOTE | 2019-12-17 11:17 | PCM.DCSUM1 ---
Discharge Summary - Hospital Course Brief History: This 44 year old female with pmh uterine cancer who is currently undergoing chemotherapy and radiation therapy. Patient did have chemotherapy yesterday along with radiation. Her temperature was 101.6 last evening so she presented to the ED. She was discharged Friday after similar incident last week. She was worked up for sepsis and treated with no source found. Dr Ordonez felt this could be related to radiation and chemotherapy. She denies any cough, diarrhea, shortness of breath or pain. Reports dysuria, but has had this since stents were placed 3 months ago. Reports these are to stay in for [address] Pitt and during radiation. Denies skin rash or redness. No concerns with port. :Last admission Hgb dipped to 7.6, she did receive 1 unit PRBCs. In the ED CBC WNL. Lactic acid 3.9 after fluids came down to 3.1. Na 134, Biacrb 20 BUN 16, Cr 1.3, Ua negative, COVID negative CXR negative. She was given 2 L LR as well as Cefepime and Vancomycin. UC and BC obtained. She will be admitted for fever post chemotherapy. Diagnosis: Stroke: No - Discharge Data Discharge Date: 12/17/19 Discharge Disposition: Home, Self-Care 01 Condition: Stable - Referral to Home Health Primary Care Physician: PCP None - Discharge Diagnosis/Problem(s) (1) Fever SNOMED Code(s): 291877540 ICD Code: R50.9 - FEVER, UNSPECIFIED Status: Acute Current Visit: No (2) Port-A-Cath in place SNOMED Code(s): 272622256 ICD Code: Z95.828 - PRESENCE OF OTHER VASCULAR IMPLANTS AND GRAFTS Status: Acute Current Visit: No (3) Uterine cancer SNOMED Code(s): 402254672 ICD Code: C55 - MALIGNANT NEOPLASM OF UTERUS, PART UNSPECIFIED Status: Acute Current Visit: No - Patient Summary/Data Hospital Course: Admitting Diagnoses: Fevers s/p chemotherapy Discharge Diagnoses: Fevers s/p chemotherapy UTI, suspected Anitha was admitted for fevers after revceived chemotherapy and radiation. BC and UC obtained, no other signs of infection. She was treated with Cefepime 2 gm Q12h. Today BC returned negative x 1 day and UC returned with klebsiella pneumonia, less then 10,000 colonies. We will discharge home, due to fevers and possible UTI, will send home with Augmentin for 5 more days. I spoke with Dr Ordonez Oncology who agrees with this and will follow patient next week. Anitha is agreeable to this. Discharge home today, follow up in Oncology. Return to ED or clinic if concerns should arise. - Patient Instructions Diet: Regular Diet as Tolerated Activity: As Tolerated Showering/Bathing: May Shower Notify Provider of: Fever, Increased Pain, Swelling and Redness, Drainage, Nausea and/or Vomiting - Discharge Plan *PRESCRIPTION DRUG MONITORING PROGRAM REVIEWED*: Not Applicable *COPY OF PRESCRIPTION DRUG MONITORING REPORT IN PATIENT AMINAH: Not Applicable Prescriptions/Med Rec: Amoxicillin/Potassium Clav [Augmentin 875-125 Tablet] 1 each PO BID #10 tablet Home Medications: Home Meds Metoprolol Succinate 50 mg PO BEDTIME 09/16/19 [History] Ondansetron [Zofran] 8 mg PO Q8H PRN 12/08/19 [History] Prochlorperazine [Compazine] 5 mg PO Q6H PRN 12/08/19 [History] Loperamide [Imodium] 2 mg PO Q6H PRN #30 cap 12/11/19 [Rx] Calcium Carbonate [Tums] 1,000 mg PO ASDIRECTED PRN 12/16/19 [History] Amoxicillin/Potassium Clav [Augmentin 875-125 Tablet] 1 each PO BID #10 tablet 12/17/19 [Rx] Oxygen Therapy Mode: Room Air Referrals: Steve Ordonez MD [Ordering Only Provider] - Brian Blackman MD [Physician] - 12/21/19 3:00 pm (Arrive 15 minutes early with a photo ID, insurance card, and a mask. ) - Discharge Summary/Plan Comment DC Time >30 min.: No - Patient Data Vitals - Most Recent: Last Vital Signs Temp 97.6 F 12/17/19 08:00 Pulse 76 12/17/19 08:00 Resp 16 12/17/19 08:00 BP 136/65 12/17/19 08:00 Pulse Ox 97 12/17/19 08:00 Weight - Most Recent: 76.657 kg I&O - Last 24 hours: Intake & Output 12/16/19 12/17/19 12/17/19 22:59 06:59 14:59 Intake Total 780 1050 Output Total 2150 2700 Balance -1370 -1650 Lab Results - Last 24 hrs: Laboratory Results - last 24 hr 12/17/19 12/17/19 Range/Units 05:21 05:21 WBC 2.62 L (4.0-11.0) K/uL RBC 3.84 L (4.30-5.90) M/uL Hgb 9.8 L (12.0-16.0) g/dL Hct 30.6 L (36.0-46.0) % MCV 79.7 L (80.0-98.0) fL MCH 25.5 L (27.0-32.0) pg MCHC 32.0 (31.0-37.0) g/dL RDW Std Deviation 44.1 (28.0-62.0) fl RDW Coeff of [place] 16 H (11.0-15.0) % Plt Count 130 L (150-400) K/uL MPV 10.00 (7.40-12.00) fL Neut % (Auto) 63.3 (48.0-80.0) % Lymph % (Auto) 14.5 L (16.0-40.0) % [place] % (Auto) 13.4 (0.0-15.0) % Eos % (Auto) 8.8 H (0.0-7.0) % Baso % (Auto) 0.0 (0.0-1.5) % Neut # (Auto) 1.7 (1.4-5.7) K/uL Lymph # (Auto) 0.4 L (0.6-2.4) K/uL [place] # (Auto) 0.4 (0.0-0.8) K/uL Eos # (Auto) 0.2 (0.0-0.7) K/uL Baso # (Auto) 0.0 (0.0-0.1) K/uL Nucleated RBC % 0.0 /100WBC Nucleated RBCs # 0 K/uL Sodium 138 (136-145) mmol/L Potassium 3.9 (3.5-5.1) mmol/L Chloride 106 (98-107) mmol/L Carbon Dioxide 23.2 (21.0-32.0) mmol/L BUN 15 (7.0-18.0) mg/dL Creatinine 1.1 H (0.6-1.0) mg/dL Est Cr Clr Drug Dosing 52.86 mL/min Estimated GFR (MDRD) 53.5 ml/min Glucose 82 (74-106) mg/dL Calcium 7.8 L (8.5-10.1) mg/dL STEPHON Results - Last 24 hrs: Microbiology 12/15/19 22:07 Urine Culture - Final Urine, Bladder Klebsiella Pneumoniae Normal Urogenital Ana 12/15/19 22:37 Aerobic Blood Culture - Preliminary Blood - Venous - Lab Draw NO GROWTH AFTER 1 DAY Anaerobic Blood Culture - Preliminary NO GROWTH AFTER 1 DAY 12/15/19 22:11 Aerobic Blood Culture - Preliminary Blood - Venous NO GROWTH AFTER 1 DAY Anaerobic Blood Culture - Preliminary NO GROWTH AFTER 1 DAY Med Orders - Current: Current Medications Calcium Carbonate/Glycine (Tums) 1,000 mg PO ASDIRECTED PRN PRN Reason: Heartburn Heparin Sodium (Porcine) (Heparin Sodium) 5,000 units SUBCUT Q8H [facility] Last Admin: 12/17/19 04:13 Dose: Not Given Documented by: Sodium Chloride (Normal Saline) 1,000 mls @ 125 mls/hr IV ASDIRECTED [facility] Last Admin: 12/17/19 05:07 Dose: 125 mls/hr Documented by: Cefepime HCl 2 gm/ Premix 50 mls @ 100 mls/hr IV Q12H [facility] Last Admin: 12/16/19 23:35 Dose: 100 mls/hr Documented by: Metoprolol Succinate (Toprol Xl) 50 mg PO BEDTIME [facility] Last Admin: 12/16/19 20:57 Dose: 50 mg Documented by: Morphine Sulfate (Morphine) 2 mg IVPUSH Q2H PRN PRN Reason: Pain (severe 7-10) Ondansetron HCl (Zofran) 4 mg IVPUSH Q4H PRN PRN Reason: Nausea/Vomitting Prochlorperazine Maleate (Compazine) 5 mg PO Q6H PRN PRN Reason: Vomiting Sodium Chloride (Saline Flush) 10 ml FLUSH ASDIRECTED PRN PRN Reason: IV Use Discontinued Medications Acetaminophen (Tylenol) 650 mg PO NOW ONE Stop: 12/15/19 22:58 Last Admin: 12/15/19 23:17 Dose: 650 mg Documented by: Sodium Chloride (Normal Saline) 1,000 mls @ 1,000 mls/hr IV .Bolus ONE Stop: 12/15/19 22:01 Last Admin: 12/15/19 22:58 Dose: 1,000 mls/hr Documented by: Sodium Chloride (Normal Saline) 1,000 mls @ 1,000 mls/hr IV BOLUS ONE Stop: 12/15/19 23:59 Last Admin: 12/15/19 23:05 Dose: 1,000 mls/hr Documented by: Cefepime HCl 2 gm/ Premix 50 mls @ 100 mls/hr IV ONETIME ONE Stop: 12/15/19 23:44 Last Admin: 12/15/19 23:19 Dose: 100 mls/hr Documented by: Vancomycin HCl 2 gm/ Sodium (Chloride) 500 mls @ 333.333 mls/hr IV ONETIME ONE Stop: 12/16/19 00:44 Last Admin: 12/15/19 23:44 Dose: 333.333 mls/hr Documented by: Cefepime HCl 1 gm/ Premix 50 mls @ 100 mls/hr IV Q12H ELIZABETH Last Admin: 12/16/19 13:05 Dose: Not Given Documented by: Ketorolac Tromethamine (Toradol) 15 mg IVPUSH ONETIME STA Stop: 12/15/19 22:58 Last Admin: 12/15/19 23:17 Dose: 15 mg Documented by: Sodium Chloride (Saline Flush) 10 ml FLUSH ASDIRECTED PRN PRN Reason: Keep Vein Open Sodium Chloride (Saline Flush) 2.5 ml FLUSH ASDIRECTED PRN PRN Reason: Keep Vein Open - Exam General: Reports: Alert, Oriented, Cooperative, No Acute Distress Lungs: Reports: Clear to Auscultation, Normal Respiratory Effort Cardiovascular: Reports: Regular Rate, Regular Rhythm GI/Abdominal Exam: Normal Bowel Sounds, Soft, Non-Tender Back Exam: Reports: Normal Inspection, Full Range of Motion Extremities: Normal Inspection, Normal Range of Motion, Non-Tender, No Pedal Edema Psy/Mental Status: Reports: Alert, Normal Affect, Normal Mood
[2019-12-17] MEDS: Cefepime 2 GM in Premix Bag 1 BAG IV SCH (11:18)
== END 2019-12-17 13:09 | disposition home or self-care (01) | DRG 720 ==
LOC: MW.ED 20:09 → MW.MS 12-16 01:44
PROVIDERS: ADMIT Internal Medicine; ATTEND Internal Medicine
DX: A41.9 Sepsis, unspecified organism (principal); R50.2 Drug induced fever; T45.1X5A Adverse effect of antineoplastic and immunosuppressive drugs, initial encounter; C55 Malignant neoplasm of uterus, part unspecified; N39.0 Urinary tract infection, site not specified; B96.1 Klebsiella pneumoniae [K. pneumoniae] as the cause of diseases classified elsewhere; Z20.828 Contact with and (suspected) exposure to other viral communicable diseases; I10 Essential (primary) hypertension; K21.9 Gastro-esophageal reflux disease without esophagitis; F41.9 Anxiety disorder, unspecified; Z95.828 Presence of other vascular implants and grafts; Z88.1 Allergy status to other antibiotic agents; Z88.2 Allergy status to sulfonamides; Z79.899 Other long term (current) drug therapy
CPT/HCPCS: 36415; 71046; 71046-26; 74176; 74176-26; 80048; 80053; 81001; 83605; 85025; 87040; 87086; 87088; 87186; 93005; 96365; 96368; 96375; 99284; 99285-25; A9270-GY; J0692; J1642; J1885; J3370; J7030; J7040; U0002

== ENCOUNTER 2020-06-20 08:04 | Day surgery (SDC) | payer BC, OTHER ==
[~2020-06-20 08:04] MED LIST changes: +ceFAZolin 1 GM in Premix Bag 1 BAG IV ONE; -ceFAZolin 2 GM in Premix Bag 1 BAG IV ONE
--- NOTE | 2020-06-20 09:21 | PCM.PREANE ---
Preanesthetic Assessment - Anesthesia/Transfusion/Family Hx Anesthesia History: Prior Anesthesia Without Reaction Other Type of Anesthesia Reaction Comment: tachycardia after D&C Family History of Anesthesia Reaction: No Transfusion History: Prior Transfusion Without Reaction Intubation History: Unknown - Review of Systems General: No Symptoms Pulmonary: No Symptoms Cardiovascular: No Symptoms Gastrointestinal: No Symptoms Neurological: No Symptoms Other: Reports: None - Physical Assessment NPO Status Date: 06/19/20 Vital Signs: Last Vital Signs Temp 97.7 F 06/20/20 08:09 Pulse 95 06/20/20 08:09 Resp 15 06/20/20 08:09 BP 141/75 H 06/20/20 08:09 Pulse Ox 97 06/20/20 08:09 Height: 5 ft 3 in Weight: 81.193 kg ASA Class: 2 Mental Status: Alert & Oriented x3 Airway Class: Mallampati = 2 Dentition: Reports: Normal Dentition ROM/Head Extension: Full Lungs: Clear to Auscultation, Normal Respiratory Effort Cardiovascular: Regular Rate, Regular Rhythm - Allergies Allergies/Adverse Reactions: Allergies Allergy/AdvReac Type Severity Reaction Status Date / Time ciprofloxacin [From Cipro] Allergy Tremors Verified 06/14/20 15:11 Sulfa (Sulfonamide Allergy Rash Verified 06/14/20 15:11 Antibiotics) - Anesthesia Plan Pre-Op Medication Ordered: None - Acknowledgements Anesthesia Type Planned: General Anesthesia Pt an Appropriate Candidate for the Planned Anesthesia: Yes Alternatives and Risks of Anesthesia Discussed w Pt/Guardian: Yes Pt/Guardian Understands and Agrees with Anesthesia Plan: Yes PreAnesthesia Questionnaire HEENT History: Reports: Other (See Below) Other HEENT History: wears glasses, has permanent lower dental retainer Cardiovascular History: Reports: Hypertension, Other (See Below) Other Cardiovascular History: hx of palpitations, twice a month, mostly all day on and off- stopped by themself Respiratory History: Reports: None Gastrointestinal History: Reports: GERD Other Gastrointestinal History: occasional heartburn- no medication Genitourinary History: Reports: Other (See Below) Other Genitourinary History: has left renal mass (cyst) 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, Polycystic Ovaries, , 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 Other OB/BYN History: removal of uterine polyps Musculoskeletal History: Reports: None Neurological History: Reports: Migraines, Other (See Below) Other Neuro History: monthly migraines- takes Ibuprofen, hx of motion sickness Psychiatric History: Reports: Anxiety Other Psychiatric History: does not take any medication Endocrine/Metabolic History: Reports: None Hematologic History: Reports: None Immunologic History: Reports: None Oncologic (Cancer) History: Reports: Uterine Dermatologic History: Reports: None - Infectious Disease History Infectious Disease History: Reports: None - Past Surgical History Female Surgical History: Reports: D&C, Endometrial Ablation, Hysterectomy, LEEP, Tubal Ligation Other Female Surgeries/Procedures: several D & C's -4 - SUBSTANCE USE Tobacco Use Status *Q: Never Tobacco User Recreational Drug Use History: No - HOME MEDS Home Medications: Home Meds Metoprolol Succinate 50 mg PO BEDTIME 09/16/19 [History] - CURRENT (IN HOUSE) MEDS Current Meds: Current Medications Lactated Ringer's (Ringers, Lactated) 1,000 mls @ 125 mls/hr IV ASDIRECTED ELIZABETH Last Admin: 06/20/20 08:28 Dose: 125 mls/hr Documented by: Sodium Chloride (Saline Flush) 10 ml FLUSH ASDIRECTED PRN PRN Reason: Keep Vein Open Sodium Chloride (Saline Flush) 2.5 ml FLUSH ASDIRECTED PRN PRN Reason: Keep Vein Open Sodium Chloride (Saline Flush) 10 ml FLUSH ASDIRECTED PRN PRN Reason: Keep Vein Open Sodium Chloride (Saline Flush) 2.5 ml FLUSH ASDIRECTED PRN PRN Reason: Keep Vein Open Sodium Chloride (Normal Saline) 10 ml IV ASDIRECTED PRN PRN Reason: IV Use Discontinued Medications Cefazolin Sodium/Dextrose 1 gm (/ Premix) 50 mls @ 100 mls/hr IV ONETIME ONE Stop: 06/20/20 06:29
[2020-06-20] MEDS ORDERED: fentaNYL 100 MCG/2 ML SDV ONE (09:33)
[2020-06-20] MEDS ORDERED: Midazolam 1 MG/ML 2 ML SDV ONE (09:33)
[2020-06-20] MEDS ORDERED: Propofol 200 MG/20 ML SDV ONE (09:33)
[2020-06-20] MEDS ORDERED: Ondansetron 4 MG/2 ML SDV ONE (09:36)
[2020-06-20] MEDS ORDERED: Glycopyrrolate 0.2 MG/ML SDV ONE (09:36)
[2020-06-20] MEDS ORDERED: Bupivacaine 0.5% 10 ML SDV ONE (09:36)
[2020-06-20] MEDS ORDERED: Lidocaine 2% 5 ML SDV ONE (09:36)
[2020-06-20] MEDS ORDERED: ceFAZolin 1 GM Vial ONE (09:54)
[2020-06-20] MEDS ORDERED: Sodium Chloride 0.9% 20 ML ONE (09:54)
[2020-06-20] MEDS ORDERED: Octyl 2-Cyanoacrylate 1 Tube ONE (10:17)
--- NOTE | 2020-06-20 10:54 | PCM.OPNOTE ---
- General Post-Op/Procedure Note Date of Surgery/Procedure: 06/20/20 Operative Procedure(s): Excision left shoulder mass, screening colonoscopy Findings: 2 x 2.5 x 1 cm left shoulder sebaceous cyst, screening colonoscopy Pre Op Diagnosis: Left shoulder mass, screening colonoscopy Post-Op Diagnosis: Left shoulder sebaceous cyst, normal colonoscopy Anesthesia Technique: [facility] [place] Primary Surgeon: Keisha Mario Fluid Replacement, Intraop: 800 EBL in mLs: 2 Condition: Good
--- NOTE | 2020-06-20 14:54 | PCM.POSTAN ---
POST ANESTHESIA ASSESSMENT - MENTAL STATUS Mental Status: Alert, Oriented - VITAL SIGNS Vital Signs: Last Vital Signs Temp 97.7 F 06/20/20 11:00 Pulse 106 H 06/20/20 11:30 Resp 15 06/20/20 11:30 BP 134/66 06/20/20 11:30 Pulse Ox 96 06/20/20 11:30 - RESPIRATORY Respiratory Status: Respiratory Rate WNL, Airway Patent, O2 Saturation Stable - CARDIOVASCULAR CV Status: Pulse Rate WNL, Blood Pressure Stable - GASTROINTESTINAL GI Status: No Symptoms - POST OP HYDRATION Hydration Status: Adequate & Stable
--- NOTE | 2020-06-20 14:54 | PCM48HPAN ---
Post Anesthesia Note - EVALUATION WITHIN 48HRS OF ANESTHETIC Vital Signs in Normal Range: Yes Patient Participated in Evaluation: Yes Respiratory Function Stable: Yes Airway Patent: Yes Cardiovascular Function Stable: Yes Hydration Status Stable: Yes Pain Control Satisfactory: Yes Nausea and Vomiting Control Satisfactory: Yes Mental Status Recovered: Yes Vital Signs: Last Vital Signs Temp 97.7 F 06/20/20 11:00 Pulse 106 H 06/20/20 11:30 Resp 15 06/20/20 11:30 BP 134/66 06/20/20 11:30 Pulse Ox 96 06/20/20 11:30
--- NOTE | 2020-06-21 14:46 | OR ---
SURGEON: KEISHA MARIO MD DATE OF PROCEDURE: 06/20/2020 PREOPERATIVE DIAGNOSES: Left shoulder mass, screening colonoscopy. POSTOPERATIVE DIAGNOSES: Left shoulder sebaceous cyst, screening colonoscopy. PROCEDURES PERFORMED: 1. Excision of left shoulder mass. 2. Screening colonoscopy. PRIMARY SURGEON: Keisha Mario MD ANESTHESIA: MAC. INSTRUMENT USED: Olympus colonoscope. EXTENT OF EXAM: To the cecum. PREPARATION: Good. LIMITATIONS: None. FINDINGS: Normal-appearing colonoscopy, 2 x 2.5 x 1 cm sebaceous cyst on the left shoulder. ESTIMATED BLOOD LOSS: 2 mL. COMPLICATIONS: None. INDICATIONS: The patient is a 44-year-old female who came to my clinic complaining of an enlarging left shoulder mass. The patient never had a colonoscopy. I discussed the need for an excision of this left shoulder mass as well as a screening colonoscopy. Both could be done at the same time over in the OR. I explained the procedures, expected perioperative course, and the risks. She verbalized understanding and wishes to proceed. PROCEDURE IN DETAIL: The patient was brought into the endoscopy suite. A time-out was completed verifying the patient's name, age, date of , allergies, and procedure to be performed. The patient was placed in supine position and general anesthesia was induced with placement of an LMA. She was then placed into a right lateral decubitus position. The left shoulder was prepped and draped in usual standard fashion. I anesthetized the area around the left shoulder mass with 0.5% Marcaine plain. A 3 cm incision was made using a 10 blade. Electrocautery was used to dissect down to level of subcutaneous fat. I immediately encountered a cystic-appearing structure. Using blunt dissection and electrocautery, I dissected it free from the overlying skin and surrounding subcutaneous tissues. It was then placed on the back table and measured. It measured 2 x 2.5 x 1 cm in size. No margins were associated with the case. It appeared to be a sebaceous cyst. Hemostasis was then achieved within the wound using electrocautery. I closed the wound with interrupted 3-0 Vicryl sutures in the subcutaneous fat space and a running 4-0 Monocryl stitch. Dermabond and sterile dressings were applied. This portion of the procedure was terminated without any immediate complications. The patient was placed in the left lateral decubitus position. A digital rectal exam was performed. This exam was within normal limits. A well-lubricated colonoscope was inserted in the rectum and advanced under direct visualization to the level of cecum. The cecum was identified by both visual and anatomic landmarks. A photograph was taken of the cecal cap. I was unable to retroflex the scope within the cecum due to looping of the scope more proximally. The scope was fully withdrawn while examining the color, texture, anatomy, and integrity of the mucosa from the cecum to the anal canal. The findings were consistent with normal colonic mucosa. The scope was then brought into the rectum and retroflexed to allow visualization of the anal canal opening. This appeared normal and a photograph was taken. The scope was then straightened out and fully withdrawn. The cecum to anus time was 7 minutes. The patient tolerated both procedures well and was taken to the PACU in stable condition. All counts were complete and correct at the end of the case. URI / BERNIE /[id number] ANTONIETTA
== END 2020-06-20 12:05 | disposition home or self-care (01) ==
LOC: MW.SDS 08:04
PROVIDERS: ATTEND Surgery
DX: Z12.11 Encounter for screening for malignant neoplasm of colon (principal); L72.0 Epidermal cyst; I10 Essential (primary) hypertension; Z88.8 Allergy status to other drugs, medicaments and biological substances; Z88.2 Allergy status to sulfonamides; Z79.899 Other long term (current) drug therapy; Z98.890 Other specified postprocedural states
CPT/HCPCS: 11403; 45378; A9270; J0690; J2250; J2405; J2704; J3010; J3490; J7120; 00300; 88304; J2001

== ENCOUNTER 2021-01-30 06:39 | Day surgery (SDC) | payer OTHER ==
[~2021-01-30 06:39] MED LIST changes: -ceFAZolin 1 GM in Premix Bag 1 BAG IV ONE; +ceFAZolin 2 GM in Premix Bag 1 BAG IV ONE
[2021-01-30] MEDS ORDERED: Bupivacaine 0.5% 10 ML SDV ONE (07:21)
[2021-01-30] MEDS ORDERED: Octyl 2-Cyanoacrylate 1 Tube ONE (07:22)
--- NOTE | 2021-01-30 07:22 | PCM.PREANE ---
Preanesthetic Assessment - Procedure Proposed Procedure: Right Port-a-cath removal - Anesthesia/Transfusion/Family Hx Anesthesia History: Prior Anesthesia Without Reaction Other Type of Anesthesia Reaction Comment: tachycardia after D&C Transfusion History: Prior Transfusion Without Reaction Intubation History: Unknown - Review of Systems General: No Symptoms Pulmonary: No Symptoms Cardiovascular: No Symptoms (Htn) Gastrointestinal: No Symptoms (Occas HB, not on meds) Neurological: No Symptoms Other: Reports: None (Mass on L Kidney which is being followed, doesn't impair kidney function) - Physical Assessment NPO Status Date: 01/29/21 NPO Status Time: 20:00 Vital Signs: Last Vital Signs Temp 96.8 F L 01/30/21 06:54 Pulse 71 01/30/21 06:54 Resp 16 01/30/21 06:54 BP 140/85 01/30/21 06:54 Pulse Ox 97 01/30/21 06:54 Height: 5 ft 3 in Weight: 79.379 kg (obesity) ASA Class: 2 Mental Status: Alert & Oriented x3 Airway Class: Mallampati = 2 Dentition: Reports: Normal Dentition Thyro-Mental Finger Breadths: 3 Mouth Opening Finger Breadths: 3 ROM/Head Extension: Full Lungs: Clear to Auscultation, Normal Respiratory Effort Cardiovascular: Regular Rate, Regular Rhythm - Allergies Allergies/Adverse Reactions: Allergies Allergy/AdvReac Type Severity Reaction Status Date / Time ciprofloxacin [From Cipro] Allergy Tremors Verified 01/24/21 09:18 Sulfa (Sulfonamide Allergy Rash Verified 01/24/21 09:18 Antibiotics) - Acknowledgements Anesthesia Type Planned: General Anesthesia Pt an Appropriate Candidate for the Planned Anesthesia: Yes Alternatives and Risks of Anesthesia Discussed w Pt/Guardian: Yes Pt/Guardian Understands and Agrees with Anesthesia Plan: Yes PreAnesthesia Questionnaire HEENT History: Reports: Other (See Below) Other HEENT History: wears glasses, has permanent lower dental retainer Cardiovascular History: Reports: Hypertension, Other (See Below) Other Cardiovascular History: hx of palpitations, Respiratory History: Reports: None Gastrointestinal History: Reports: GERD Other Gastrointestinal History: occasional heartburn- no medication Genitourinary History: Reports: Other (See Below) Other Genitourinary History: hx left renal mass (cyst) 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, , 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 Musculoskeletal History: Reports: None Neurological History: Reports: Migraines Psychiatric History: Reports: None Endocrine/Metabolic History: Reports: Obesity/BMI 30+ Hematologic History: Reports: Anemia, Blood Transfusion(s) Immunologic History: Reports: None Oncologic (Cancer) History: Reports: Uterine Dermatologic History: Reports: None - Infectious Disease History Infectious Disease History: Reports: None - Past Surgical History Head Surgeries/Procedures: Reports: None HEENT Surgical History: Reports: None Cardiovascular Surgical History: Reports: Vascular Surgery Other Cardiovascular Surgeries/Procedures: insertion of right Port-a-Cath Respiratory Surgical History: Reports: None GI Surgical History: Reports: Colonoscopy Female Surgical History: Reports: D&C, Endometrial Ablation, Hysterectomy, LEEP, Tubal Ligation, Other (See Below) Other Female Surgeries/Procedures: uteroscopy with stent placement Endocrine Surgical History: Reports: None Neurological Surgical History: Reports: None Musculoskeletal Surgical History: Reports: Arthroscopic Knee Oncologic Surgical History: Reports: Other (See Below) Other Oncologic Surgeries/Procedures: GINA, BSO Dermatological Surgical History: Reports: None - SUBSTANCE USE Tobacco Use Status *Q: Never Tobacco User - HOME MEDS Home Medications: Home Meds Metoprolol Succinate 50 mg PO BEDTIME 09/16/19 [History] - CURRENT (IN HOUSE) MEDS Current Meds: Current Medications Lactated Ringer's (Ringers, Lactated) 1,000 mls @ 125 mls/hr IV ASDIRECTED ELIZABETH Last Admin: 01/30/21 06:58 Dose: 125 mls/hr Documented by: Sodium Chloride (Sodium Chloride 0.9% 2.5 Ml Syringe) 2.5 ml FLUSH ASDIRECTED PRN PRN Reason: Keep Vein Open Sodium Chloride (Sodium Chloride 0.9% 10 Ml Sdv) 10 ml IV ASDIRECTED PRN PRN Reason: IV Use Sodium Chloride (Sodium Chloride 0.9% 10 Ml Syringe) 10 ml FLUSH ASDIRECTED PRN PRN Reason: Keep Vein Open Discontinued Medications Cefazolin Sodium/Dextrose 2 gm (/ Premix) 50 mls @ 100 mls/hr IV ONETIME ONE Stop: 01/29/21 11:03
[2021-01-30] MEDS ORDERED: Midazolam 1 MG/ML 2 ML SDV ONE (07:35)
[2021-01-30] MEDS ORDERED: fentaNYL 100 MCG/2 ML SDV ONE (07:35)
[2021-01-30] MEDS ORDERED: Propofol 200 MG/20 ML SDV ONE (07:35)
[2021-01-30] MEDS ORDERED: Lidocaine 2% 5 ML SDV ONE (07:38)
[2021-01-30] MEDS ORDERED: Ondansetron 4 MG/2 ML SDV ONE (08:24)
--- NOTE | 2021-01-30 08:39 | PCM.POSTAN ---
POST ANESTHESIA ASSESSMENT - MENTAL STATUS Mental Status: Alert, Oriented - VITAL SIGNS Vital Signs: Last Vital Signs Temp 96.8 F L 01/30/21 06:54 Pulse 71 01/30/21 06:54 Resp 16 01/30/21 06:54 BP 140/85 01/30/21 06:54 Pulse Ox 97 01/30/21 06:54 - RESPIRATORY Respiratory Status: Respiratory Rate WNL, Airway Patent, O2 Saturation Stable - CARDIOVASCULAR CV Status: Pulse Rate WNL, Blood Pressure Stable - GASTROINTESTINAL GI Status: No Symptoms - PAIN Pain Score: 0 - POST OP HYDRATION Hydration Status: Adequate & Stable
--- NOTE | 2021-01-30 08:41 | PCM.OPNOTE ---
- General Post-Op/Procedure Note Date of Surgery/Procedure: 01/30/21 Operative Procedure(s): Port a cath removal Findings: RIJ port a cath removal Pre Op Diagnosis: Port a cath in place, utertine cancer Post-Op Diagnosis: same Anesthesia Technique: Local, MAC Primary Surgeon: Keisha Mario Fluid Replacement, Intraop: 500 EBL in mLs: 2 Condition: Good
--- NOTE | 2021-01-30 08:58 | PCM48HPAN ---
Post Anesthesia Note - EVALUATION WITHIN 48HRS OF ANESTHETIC Vital Signs in Normal Range: Yes Patient Participated in Evaluation: Yes Respiratory Function Stable: Yes Airway Patent: Yes Cardiovascular Function Stable: Yes Hydration Status Stable: Yes Pain Control Satisfactory: Yes Nausea and Vomiting Control Satisfactory: Yes Mental Status Recovered: Yes Vital Signs: Last Vital Signs Temp 98.2 F 01/30/21 08:32 Pulse 62 01/30/21 08:52 Resp 11 L 01/30/21 08:52 BP 124/58 L 01/30/21 08:52 Pulse Ox 93 L 01/30/21 08:52 - COMMENTS/OBSERVATIONS Free Text/Narrative:: Pt doing well post-op. VSS. No apparent anesthetic complications. Dr. Keyon Haywood
--- NOTE | 2021-01-30 15:31 | OR ---
SURGEON: KEISHA MARIO MD DATE OF PROCEDURE: 01/30/2021 PREOPERATIVE DIAGNOSIS: Uterine cancer, Port-A-Cath in place. POSTOPERATIVE DIAGNOSIS: Uterine cancer, Port-A-Cath in place. PROCEDURE PERFORMED: Excision, right internal jugular Port-A-Cath. PRIMARY SURGEON: Keisha Mario MD ANESTHESIA: MAC, local. FLUIDS: 500 mL of crystalloid. ESTIMATED BLOOD LOSS: 2 mL. FINDINGS: Intact right internal jugular Port-A-Cath. COMPLICATIONS: None. INDICATIONS: The patient is a 45-year-old female who presented to clinic after completion of chemotherapy for uterine cancer. She is ready to have her Port-A-Cath removed. We discussed the procedure, expected perioperative course, and the risks. She verbalized understanding and wishes to proceed. PROCEDURE IN DETAIL: The patient was brought into the OR and placed on the OR table in supine position. A time-out was completed verifying the patient's name, age, date of , allergies, and procedure to be performed. Monitored anesthesia care was induced. The right arm was tucked to the patient's side. The right chest wall and neck were prepped and draped in the usual standard fashion. I anesthetized the area overlying the Port-A-Cath device on the anterior chest wall with 0.5% Marcaine plain. A small elliptical incision was made around her previous scar using a 15 blade. I then used cautery to dissect down to the level of the subcutaneous fat. I undermined the old scar tissue and excised it from the wound. It was passed off the field. I then used electrocautery to dissect down to the level of the Port-A-Cath device. The scar capsule was opened using electrocautery. I identified the 2 Prolene sutures holding the Port-A-Cath in place. These were excised sharply using Metzenbaum scissors. The Port-A-Cath was then delivered outside of the wound, and gentle pressure was used to remove the catheter tubing while pressure was held at the neck. The Port-A-Cath came out without difficulty. Pressure was held at the neck for one minute. The Port- A-Cath device was passed off the field. After one minute, pressure was released from the neck, and I inspected the operative field. It was hemostatic. The area was washed with normal saline. It was dried. Hemostasis was achieved with electrocautery. I then closed the wound with a deep layer of running 3-0 Vicryl stitches. More superficially, I closed the subcutaneous fat with interrupted 3- 0 Vicryl sutures. The skin was then closed with a running 4-0 Monocryl stitch. Dermabond and sterile dressings were applied. The patient tolerated the procedure well and was awoken and taken to PACU in stable condition. All counts were complete and correct at the end of the case. URI GIBBS /[id number]
== END 2021-01-30 09:58 | disposition home or self-care (01) ==
LOC: MW.SDS 06:39
PROVIDERS: ATTEND Surgery
DX: Z45.2 Encounter for adjustment and management of vascular access device (principal); C55 Malignant neoplasm of uterus, part unspecified; I10 Essential (primary) hypertension; E78.5 Hyperlipidemia, unspecified; G43.909 Migraine, unspecified, not intractable, without status migrainosus; E66.9 Obesity, unspecified; Z88.8 Allergy status to other drugs, medicaments and biological substances; Z88.2 Allergy status to sulfonamides; Z79.899 Other long term (current) drug therapy; Z98.890 Other specified postprocedural states; Z68.31 Body mass index [BMI] 31.0-31.9, adult
CPT/HCPCS: 36590; A9270; J0690; J2250; J2405; J2704; J3010; J3490; J7120; 00532